=== PATIENT | female | born 1970 | race Hispanic/Latino ===

== ENCOUNTER 2019-09-29 08:20 | Inpatient (IN) | payer MEDICAID, OTHER, SELFPAY ==
[~2019-09-29] VITALS: Ht 170.2 cm; Wt 83.9 kg
[2019-09-29 08:39] LABS: BASOPHILS % (AUTO) 0.1 % (0.0-5.0); EOSINOPHILS % (AUTO) 0.2 % (0.0-8.0); HEMATOCRIT 40.7 % (36-48); LYMPHOCYTES % (AUTO) 12.9 % (21.0-51.0); MEAN CORPUSCULAR HEMOGLOBIN 29.9 pg (27.0-33.0); MEAN CORPUSCULAR HGB CONC 33.2 g/dL (32.0-36.0); MONOCYTES % (AUTO) 1.6 % (3.0-13.0); NEUTROPHILS % (AUTO) 84.4 % (40.0-77.0); PLATELET COUNT (AUTO) 315 K/uL (130-400); RED BLOOD CELL COUNT(AUTO) 4.52 MIL/uL (4.00-5.50); WHITE BLOOD COUNT (AUTO) 11.4 K/uL (4.8-10.8)
[2019-09-29] MEDS ORDERED: DEXAMETHASONE SOD PHOSPHATE 10MG/ML 1ML VIAL ONE (08:52)
[2019-09-29 08:55] LABS: ALBUMIN 2.6 g/dL (3.5-5.0); CREATININE 0.8 mg/dL (0.5-1.5); POTASSIUM 3.4 mmol/L (3.5-5.1)
[2019-09-29 09:04] LABS: ABG BASE EXCESS 2.6 mmol/L (-2.0-3.0); ABG HCO3 26.1 mmol/L (21.0-28.0); ABG OXYGEN SATURATION 91.4 % (95.0-99.0); ABG PCO2 37 mmHg (32-45)
[2019-09-29] MEDS ORDERED: GUAIFENESIN SUGAR-FREE 100 MG/5 ML UDCUP ONE (09:04)
[2019-09-29 09:12] LABS: BILIRUBIN,TOTAL 0.4 mg/dL (0.2-1.0); TOTAL PROTEIN, SERUM 8.3 g/dL (6.0-8.3)
[2019-09-29] MEDS ORDERED: ALBUTEROL INHALER 90MCG/INH IH ONE (09:17)
[2019-09-29 09:30] LABS: INR 0.87 (0.85-1.15); PARTIAL THROMBOPLASTIN TIME 34.2 SEC (26.3-35.5); PROTHROMBIN TIME 9.4 SEC (9.6-11.6)
[2019-09-29] MEDS ORDERED: DIPHENHYDRAMINE HCL 25 MG CAPSULE PO PRN (09:30)
[2019-09-29] MEDS ORDERED: ACETAMINOPHEN-CODEINE 300/30MG TAB PO PRN (09:30)
[2019-09-29] MEDS ORDERED: ONDANSETRON HCL 4 MG/2 ML VIAL IV PRN (09:30)
[2019-09-29] MEDS: FUROSEMIDE 10 MG/ML 4ML VIAL IVP SCH ×2 (10:00→20:30)
[2019-09-29] MEDS ORDERED: ENOXAPARIN SODIUM 40 MG/0.4 ML SYRINGE SQ SCH (10:00)
[2019-09-29] MEDS: CEFTRIAXONE SODIUM 1 GM IV SCH (10:00)
[2019-09-29] MEDS: AZITHROMYCIN 500MG+NS 250ML 250 ML IV SCH (10:00)
[2019-09-29] MEDS ORDERED: ENOXAPARIN SODIUM 40 MG/0.4 ML SYRINGE SQ ONE (10:42)
[2019-09-29] MEDS ORDERED: AZITHROMYCIN 500MG+NS 250ML 250 ML IV ONE ×2 (10:42→10:52)
[2019-09-29] MEDS ORDERED: CEFTRIAXONE SODIUM 1 GM ONE (10:42)
[2019-09-29] MEDS ORDERED: FUROSEMIDE 10 MG/ML 4ML VIAL ONE (10:42)
[2019-09-29] MEDS ORDERED: FAMOTIDINE/PF 20 MG/2 ML VIAL IV ONE (10:43)
[2019-09-29 11:50] LABS: APPEARANCE,URINE Clear (CLEAR); BILIRUBIN,URINE Negative (NEGATIVE); COLOR,URINE Yellow (YELLOW); GLUCOSE, URINE (UA) Negative (NEGATIVE); KETONES,URINE Negative (NEGATIVE); LEUKOCYTE ESTERASE ,URINE Negative (NEGATIVE); NITRATE,URINE Negative (NEGATIVE); OCCULT BLOOD,URINE Negative (NEGATIVE); PROTEIN,URINE Trace mg/dL (NEGATIVE)
[2019-09-29 11:58] LABS: RBC,URINE 0-1 /HPF (0-1)
[2019-09-29 11:59] LABS: BACTERIA,URINE Few /HPF (None Seen); MUCUS,URINE Rare LPF (None Seen); SQUAMOUS EPITHELIAL CELL,UR Rare /HPF (0-2)
[2019-09-29] MEDS ORDERED: GLUCAGON 1MG KIT 1 MG ML IM PRN (14:15)
[2019-09-29] MEDS ORDERED: DEXTROSE 50%-WATER 50 ML DISP.SYRIN IV PRN (14:15)
[2019-09-29] MEDS: BENZONATATE 100 MG CAPSULE PO PRN ×2 (15:50→20:32)
[2019-09-29] MEDS: INSULIN HUMULIN R 100 UNIT/ML 3ML SQ SCH ×2 (15:51→20:29)
[2019-09-29 16:00] VITALS: BP 125/74
[2019-09-29] MEDS ORDERED: PHARMACY COMMUNICATION MISC SCH ×2 (16:30→18:30)
[2019-09-29] MEDS: ENOXAPARIN SODIUM 40 MG/0.4 ML SYRINGE SQ SCH (20:27)
[2019-09-29 20:28] VITALS: BP 126/69
[2019-09-29] MEDS: FAMOTIDINE/PF 20 MG/2 ML VIAL IV SCH (20:31)
[2019-09-29 23:46] VITALS: BP 133/83
[2019-09-30] MEDS ORDERED: POTASSIUM CHLORIDE 10% ELIXIR 20 MEQ/15 ML UDCUP PO PRN
[2019-09-30] MEDS ORDERED: POTASSIUM CHLORIDE 20MEQ/100ML 100 ML IV PRN
[2019-09-30 04:00] VITALS: BP 117/72
[2019-09-30] MEDS: BENZONATATE 100 MG CAPSULE PO PRN ×2 (04:15→14:34)
[2019-09-30] MEDS: ACETAMINOPHEN 325 MG TAB PO PRN (04:19)
[2019-09-30 05:45] LABS: BASOPHILS % (AUTO) 0.1 % (0.0-5.0); HEMATOCRIT 36.2 % (36-48); LYMPHOCYTES % (AUTO) 9.6 % (21.0-51.0); MEAN CORPUSCULAR HEMOGLOBIN 29.9 pg (27.0-33.0); MEAN CORPUSCULAR HGB CONC 33.1 g/dL (32.0-36.0); MEAN CORPUSCULAR VOLUME 90.3 fL (79-99); MONOCYTES % (AUTO) 1.9 % (3.0-13.0); NEUTROPHILS % (AUTO) 87.9 % (40.0-77.0); PLATELET COUNT (AUTO) 344 K/uL (130-400); RED BLOOD CELL COUNT(AUTO) 4.01 MIL/uL (4.00-5.50); WHITE BLOOD COUNT (AUTO) 9.7 K/uL (4.8-10.8)
[2019-09-30 06:07] LABS: ALBUMIN 2.5 g/dL (3.5-5.0); BILIRUBIN,TOTAL 0.4 mg/dL (0.2-1.0); CREATININE 0.9 mg/dL (0.5-1.5); POTASSIUM 3.6 mmol/L (3.5-5.1); TOTAL PROTEIN, SERUM 8.1 g/dL (6.0-8.3)
[2019-09-30] MEDS: INSULIN HUMULIN R 100 UNIT/ML 3ML SQ SCH ×4 (06:54→20:42)
[2019-09-30] MEDS: FAMOTIDINE/PF 20 MG/2 ML VIAL IV SCH ×2 (08:19→20:39)
[2019-09-30] MEDS: DEXAMETHASONE 4 MG TAB PO SCH (08:20)
[2019-09-30] MEDS: FUROSEMIDE 10 MG/ML 4ML VIAL IVP SCH ×2 (08:20→20:40)
[2019-09-30] MEDS: ENOXAPARIN SODIUM 40 MG/0.4 ML SYRINGE SQ SCH ×2 (08:22→20:39)
[2019-09-30 08:54] VITALS: BP 113/76
[2019-09-30] MEDS: CEFTRIAXONE SODIUM 1 GM IV SCH (09:37)
[2019-09-30] MEDS: AZITHROMYCIN 500MG+NS 250ML 250 ML IV SCH (09:38)
--- NOTE | 2019-09-30 10:23 | NUR ---
CHART CHECK COMPLETED. Pt IS A 48 Y.O. FEMALE ADMITTED SECONDARY TO COVID 19. PAST MEDICAL HISTORY NOT REPORTED AT THIS TIME. Pt CURRENTLY ON REGULAR TEXTURE, THIN LIQUID DIET (CONSISTENT CARB). Pt ON 4L O2 VIA NC. SKILLED SPEECH THERAPY IS NOT WARRANTED AT THIS TIME. Addendum: 09/30/19 at 1026 by BREANNA YU, [address] Amended: Links added.
[2019-09-30 12:01] VITALS: BP 108/64
[2019-09-30] MEDS ORDERED: PHARMACY COMMUNICATION MISC SCH (13:30)
[2019-09-30] MEDS ORDERED: REMDESIVIR (EUA) 520 200 MG in SODIUM CHLORIDE 0.9% 250 ML IV ONE (13:45)
[2019-09-30] MEDS ORDERED: COMPOUND IV REFRIGERATED 1 EACH IVSOLN MISC PRN (14:00)
[2019-09-30] MEDS: POTASSIUM CHLORIDE 20 MEQ ERTAB PO PRN ×2 (14:12→16:57)
[2019-09-30 16:48] VITALS: BP 121/74
--- NOTE | 2019-09-30 17:35 | NUR ---
DCP CM unable to meet with pt, called spouse on facesheet, spoke to Christo Dale , discussed dc plans. Pt is independent prior to admission, lives at home with spouse, daughter, and 2 sons. Denies any equipments/services, uses [facility] for meds. Feels safe to go back home, mariella summers, spouse able to assist with transportation and needs as necessary. DC plan to home once stable. CM to cont to follow up. 2nd emergency contact: Elena Bueno- daughter [phone] Addendum: 09/30/19 at 1737 by SIRIA RIVERA LVN Amended: Links added.
[2019-09-30 20:17] VITALS: BP 121/69
[2019-09-30] MEDS: GUAIFENESIN-CODEINE 5 ML SYRUP PO PRN (20:38)
[2019-09-30 23:56] VITALS: BP 122/78
--- NOTE | 2019-10-01 02:07 | NUR ---
First and second units of FFP transfusion competed, ran on pump @125ml/hr. Tolerated well with no adverse transfusion reaction observed. V/S stable. Patient is now resting comfortably in bed. Following POC. Will continue to monitor.
[2019-10-01 03:28] VITALS: BP 115/82
[2019-10-01 03:43] LABS: ABG BASE EXCESS 3.7 mmol/L (-2.0-3.0); ABG HCO3 28.2 mmol/L (21.0-28.0); ABG OXYGEN SATURATION 95.4 % (95.0-99.0); ABG PCO2 42 mmHg (32-45)
[2019-10-01] MEDS: GUAIFENESIN-CODEINE 5 ML SYRUP PO PRN ×3 (03:50→17:13)
[2019-10-01] MEDS: PHARMACY COMMUNICATION MISC SCH (06:00)
[2019-10-01 06:33] LABS: HEMATOCRIT 34.3 % (36-48); MEAN CORPUSCULAR HEMOGLOBIN 29.6 pg (27.0-33.0); MEAN CORPUSCULAR HGB CONC 32.9 g/dL (32.0-36.0); MEAN CORPUSCULAR VOLUME 89.8 fL (79-99); RED BLOOD CELL COUNT(AUTO) 3.82 MIL/uL (4.00-5.50); RED CELL DISTRIBUTION WIDTH 13.8 % (11.0-15.5); WHITE BLOOD COUNT (AUTO) 6.9 K/uL (4.8-10.8)
[2019-10-01 06:53] LABS: ALBUMIN 2.5 g/dL (3.5-5.0); BILIRUBIN,DIRECT 0.1 mg/dL (0.0-0.3); BILIRUBIN,TOTAL 0.4 mg/dL (0.2-1.0); CREATININE 0.7 mg/dL (0.5-1.5); MAGNESIUM 2.1 mg/dL (1.80-2.40); PHOSPHORUS 3.4 mg/dL (2.5-4.9); POTASSIUM 3.9 mmol/L (3.5-5.1); TOTAL PROTEIN, SERUM 7.8 g/dL (6.0-8.3)
[2019-10-01] MEDS: INSULIN HUMULIN R 100 UNIT/ML 3ML SQ SCH ×4 (07:24→20:58)
[2019-10-01 07:25] VITALS: BP 116/81
[2019-10-01] MEDS: FAMOTIDINE/PF 20 MG/2 ML VIAL IV SCH ×2 (10:29→20:56)
[2019-10-01] MEDS: DEXAMETHASONE 4 MG TAB PO SCH (10:29)
[2019-10-01] MEDS: FUROSEMIDE 10 MG/ML 4ML VIAL IVP SCH ×2 (10:29→20:57)
[2019-10-01] MEDS: AZITHROMYCIN 500MG+NS 250ML 250 ML IV SCH (10:30)
[2019-10-01] MEDS: CEFTRIAXONE SODIUM 1 GM IV SCH (10:30)
[2019-10-01] MEDS: ENOXAPARIN SODIUM 40 MG/0.4 ML SYRINGE SQ SCH ×2 (10:30→21:01)
[2019-10-01 10:56] VITALS: BP 114/73
[2019-10-01] MEDS ORDERED: REMDESIVIR (EUA) 520 100 MG in SODIUM CHLORIDE 0.9% 250 ML IV SCH (14:00)
[2019-10-01] MEDS: REMDESIVIR (EUA) 520 100 MG in SODIUM CHLORIDE 0.9% 250 ML IV SCH (15:46)
[2019-10-01 15:58] VITALS: BP 123/79
[2019-10-01 19:57] VITALS: BP 117/70
[2019-10-02 01:16] VITALS: BP 126/76
[2019-10-02 04:03] VITALS: BP 115/77
[2019-10-02 04:12] LABS: ABG BASE EXCESS 3.9 mmol/L (-2.0-3.0); ABG HCO3 26.8 mmol/L (21.0-28.0); ABG OXYGEN SATURATION 96.9 % (95.0-99.0); ABG PCO2 35 mmHg (32-45)
[2019-10-02 05:17] LABS: BASOPHILS % (AUTO) 0.2 % (0.0-5.0); EOSINOPHILS % (AUTO) 0.2 % (0.0-8.0); HEMATOCRIT 37.7 % (36-48); LYMPHOCYTES % (AUTO) 27.7 % (21.0-51.0); MEAN CORPUSCULAR HEMOGLOBIN 29.2 pg (27.0-33.0); MEAN CORPUSCULAR HGB CONC 32.6 g/dL (32.0-36.0); MEAN CORPUSCULAR VOLUME 89.5 fL (79-99); MONOCYTES % (AUTO) 5.3 % (3.0-13.0); NEUTROPHILS % (AUTO) 64.8 % (40.0-77.0); PLATELET COUNT (AUTO) 430 K/uL (130-400); RED BLOOD CELL COUNT(AUTO) 4.21 MIL/uL (4.00-5.50); RED CELL DISTRIBUTION WIDTH 13.7 % (11.0-15.5); WHITE BLOOD COUNT (AUTO) 6.3 K/uL (4.8-10.8)
[2019-10-02 06:18] LABS: ALBUMIN 2.7 g/dL (3.5-5.0); BILIRUBIN,DIRECT 0.1 mg/dL (0.0-0.3); BILIRUBIN,TOTAL 0.3 mg/dL (0.2-1.0); CREATININE 0.8 mg/dL (0.5-1.5); POTASSIUM 3.7 mmol/L (3.5-5.1); TOTAL PROTEIN, SERUM 8.6 g/dL (6.0-8.3)
[2019-10-02] MEDS: GUAIFENESIN-CODEINE 5 ML SYRUP PO PRN ×3 (06:25→23:37)
[2019-10-02] MEDS: INSULIN HUMULIN R 100 UNIT/ML 3ML SQ SCH ×4 (06:30→23:39)
[2019-10-02 07:27] VITALS: BP 105/69
[2019-10-02] MEDS: PHARMACY COMMUNICATION MISC SCH (08:00)
[2019-10-02] MEDS: FUROSEMIDE 10 MG/ML 4ML VIAL IVP SCH ×2 (09:36→20:39)
[2019-10-02] MEDS: DEXAMETHASONE 4 MG TAB PO SCH (09:37)
[2019-10-02] MEDS: AZITHROMYCIN 500MG+NS 250ML 250 ML IV SCH (09:38)
[2019-10-02] MEDS: ENOXAPARIN SODIUM 40 MG/0.4 ML SYRINGE SQ SCH ×2 (09:38→20:45)
[2019-10-02] MEDS: CEFTRIAXONE SODIUM 1 GM IV SCH (09:38)
[2019-10-02] MEDS: FAMOTIDINE/PF 20 MG/2 ML VIAL IV SCH ×2 (09:39→20:38)
[2019-10-02 10:48] VITALS: BP 99/64
[2019-10-02] MEDS: REMDESIVIR (EUA) 520 100 MG in SODIUM CHLORIDE 0.9% 250 ML IV SCH (14:03)
[2019-10-02 15:40] VITALS: BP 107/73
[2019-10-02] MEDS: ACETAMINOPHEN 325 MG TAB PO PRN (16:26)
[2019-10-02 20:23] VITALS: BP 110/72
[2019-10-03] VITALS (7 sets, daily range): BP systolic 98–119; BP diastolic 62–81
[2019-10-03] MEDS: PHARMACY COMMUNICATION MISC SCH (06:00)
[2019-10-03] MEDS: INSULIN HUMULIN R 100 UNIT/ML 3ML SQ SCH ×4 (07:30→20:25)
[2019-10-03 07:36] LABS: ALBUMIN 2.7 g/dL (3.5-5.0); BILIRUBIN,DIRECT 0.1 mg/dL (0.0-0.3); BILIRUBIN,TOTAL 0.3 mg/dL (0.2-1.0); CREATININE 0.9 mg/dL (0.5-1.5); TOTAL PROTEIN, SERUM 8.2 g/dL (6.0-8.3)
--- NOTE | 2019-10-03 08:30 | NUR ---
NOTE AAOX3. SHE CAME IN WITH SOB SHE IS POSITIVE FOR COVID. RECEIVED CONVALESCENT PLASMA AND STARTED REMDESIVIR WHICH SHE IS STILL RECEIVING. BBS CLEAR BUT SLIGHTLY DIMINISHED. COUGHS AT TIMES. SHE REPORTS AND IS NOTICEABLE THAT SHE IS VERY NERVOUS. TRIES TO AVOID COUGHING AT ALL COST. HAS BEEN REFUSING TESSALON PEARLES. REQUESTING ALTERNATE COUGH MED. WILL MEDICATE SOON. INSTRUCTED HER SHE NEEDS TO BE GETTING OUT OF BED. SITTING UP STRAIGHT, DEEP BREATHS AND TRY TO PRONE OR AT LEAST BE CHANGING POSITION WHILE IN BED. SHE VERBALIZES UNDERSTANDING BUT IS ASKING IF ANXIETY MEDS COULD BE ADDED. WILL ASK MD WHEN THEY ROUNDS.
[2019-10-03] MEDS: CEFTRIAXONE SODIUM 1 GM IV SCH (09:27)
[2019-10-03] MEDS: DEXAMETHASONE 4 MG TAB PO SCH (09:27)
[2019-10-03] MEDS: FUROSEMIDE 10 MG/ML 4ML VIAL IVP SCH ×2 (09:27→20:23)
[2019-10-03] MEDS: AZITHROMYCIN 500MG+NS 250ML 250 ML IV SCH (09:27)
[2019-10-03] MEDS: FAMOTIDINE/PF 20 MG/2 ML VIAL IV SCH ×2 (09:27→20:22)
[2019-10-03] MEDS: ENOXAPARIN SODIUM 40 MG/0.4 ML SYRINGE SQ SCH ×2 (09:27→20:26)
[2019-10-03] MEDS: GUAIFENESIN-CODEINE 5 ML SYRUP PO PRN (09:29)
[2019-10-03] MEDS ORDERED: DIAZEPAM 2 MG TAB PO PRN (12:30)
[2019-10-03] MEDS: REMDESIVIR (EUA) 520 100 MG in SODIUM CHLORIDE 0.9% 250 ML IV SCH (12:54)
[2019-10-03] MEDS: BENZONATATE 100 MG CAPSULE PO PRN (12:56)
[2019-10-03] MEDS ORDERED: DIAZEPAM 5 MG TABLET PO PRN (17:00)
--- NOTE | 2019-10-03 18:20 | NUR ---
NOTE HAS REMAINED STABLE THROUGHOUT THE DAY. SHE STARTED DOING WHAT SHE WAS INSTRUCTED TO DO AND WAS ALSO APPROACHED BY NURSE PRACTICIONER WILMER TO DO THE SAME AND SHE GOT OUT OF BED ON HER OWN SLOWLY. HAS BEEN TRYING TO CONTROL HER BREATHING AND TAKES DEEP BREATHS. SHE IS ASKING HER SON TO BRING HER COGH DROPS SHE SAYS SHE DID BETTER WITH THAT EARLIER FAR PREVENTING COUGH. TOLD HER HAT ANXIETY MEDS ARE AVAILABLE IF NEEDED. VERBALIZED UNDERSTANDING.
[2019-10-04 03:38] VITALS: BP 115/75
[2019-10-04 03:45] LABS: ABG BASE EXCESS 4.8 mmol/L (-2.0-3.0); ABG OXYGEN SATURATION 94.8 % (95.0-99.0); ABG PCO2 37 mmHg (32-45)
[2019-10-04 04:45] LABS: BASOPHILS % (AUTO) 0.2 % (0.0-5.0); EOSINOPHILS % (AUTO) 0.3 % (0.0-8.0); HEMATOCRIT 39.6 % (36-48); LYMPHOCYTES % (AUTO) 35.6 % (21.0-51.0); MEAN CORPUSCULAR HEMOGLOBIN 29.3 pg (27.0-33.0); MEAN CORPUSCULAR HGB CONC 33.1 g/dL (32.0-36.0); MEAN CORPUSCULAR VOLUME 88.6 fL (79-99); MONOCYTES % (AUTO) 6.9 % (3.0-13.0); NEUTROPHILS % (AUTO) 53.5 % (40.0-77.0); PLATELET COUNT (AUTO) 531 K/uL (130-400); RED BLOOD CELL COUNT(AUTO) 4.47 MIL/uL (4.00-5.50); RED CELL DISTRIBUTION WIDTH 13.4 % (11.0-15.5); WHITE BLOOD COUNT (AUTO) 6.5 K/uL (4.8-10.8)
[2019-10-04 05:18] LABS: ALBUMIN 2.8 g/dL (3.5-5.0); BILIRUBIN,DIRECT 0.1 mg/dL (0.0-0.3); BILIRUBIN,TOTAL 0.3 mg/dL (0.2-1.0); CREATININE 0.8 mg/dL (0.5-1.5); MAGNESIUM 2.2 mg/dL (1.80-2.40); PHOSPHORUS 3.9 mg/dL (2.5-4.9); POTASSIUM 3.4 mmol/L (3.5-5.1); TOTAL PROTEIN, SERUM 8.4 g/dL (6.0-8.3)
[2019-10-04] MEDS: PHARMACY COMMUNICATION MISC SCH (06:00)
[2019-10-04] MEDS: INSULIN HUMULIN R 100 UNIT/ML 3ML SQ SCH ×4 (06:24→20:58)
[2019-10-04 08:00] VITALS: BP 108/67
[2019-10-04] MEDS: AZITHROMYCIN 500MG+NS 250ML 250 ML IV SCH (08:58)
[2019-10-04] MEDS: FUROSEMIDE 10 MG/ML 4ML VIAL IVP SCH ×2 (08:59→20:55)
[2019-10-04] MEDS: CEFTRIAXONE SODIUM 1 GM IV SCH (08:59)
[2019-10-04] MEDS: FAMOTIDINE/PF 20 MG/2 ML VIAL IV SCH ×2 (08:59→20:56)
[2019-10-04] MEDS: DEXAMETHASONE 4 MG TAB PO SCH (09:00)
[2019-10-04] MEDS: ENOXAPARIN SODIUM 40 MG/0.4 ML SYRINGE SQ SCH ×2 (09:00→20:57)
[2019-10-04 11:00] VITALS: BP 111/73
[2019-10-04] MEDS: REMDESIVIR (EUA) 520 100 MG in SODIUM CHLORIDE 0.9% 250 ML IV SCH (13:37)
[2019-10-04 16:00] VITALS: BP 107/67
[2019-10-04] MEDS: ACETAMINOPHEN 325 MG TAB PO PRN (19:23)
[2019-10-04 19:55] VITALS: BP 123/87
[2019-10-04] MEDS: POTASSIUM CHLORIDE 20 MEQ ERTAB PO PRN (20:56)
[2019-10-04 23:23] VITALS: BP 115/74
[2019-10-05] MEDS: POTASSIUM CHLORIDE 20 MEQ ERTAB PO PRN ×2 (00:37→03:17)
[2019-10-05 03:28] VITALS: BP 119/77
[2019-10-05] MEDS: GUAIFENESIN-CODEINE 5 ML SYRUP PO PRN (03:47)
[2019-10-05] MEDS: BENZONATATE 100 MG CAPSULE PO PRN (03:51)
[2019-10-05] MEDS: PHARMACY COMMUNICATION MISC SCH (05:22)
[2019-10-05 05:35] LABS: BASOPHILS % (AUTO) 0.3 % (0.0-5.0); EOSINOPHILS % (AUTO) 0.6 % (0.0-8.0); HEMATOCRIT 38.5 % (36-48); LYMPHOCYTES % (AUTO) 30.4 % (21.0-51.0); MEAN CORPUSCULAR HEMOGLOBIN 29.8 pg (27.0-33.0); MEAN CORPUSCULAR HGB CONC 33.5 g/dL (32.0-36.0); MEAN CORPUSCULAR VOLUME 88.9 fL (79-99); MONOCYTES % (AUTO) 5.8 % (3.0-13.0); NEUTROPHILS % (AUTO) 59.5 % (40.0-77.0); PLATELET COUNT (AUTO) 544 K/uL (130-400); RED BLOOD CELL COUNT(AUTO) 4.33 MIL/uL (4.00-5.50); RED CELL DISTRIBUTION WIDTH 13.2 % (11.0-15.5); WHITE BLOOD COUNT (AUTO) 6.8 K/uL (4.8-10.8)
[2019-10-05] MEDS: INSULIN HUMULIN R 100 UNIT/ML 3ML SQ SCH ×3 (05:51→16:58)
[2019-10-05 06:15] LABS: ALANINE AMINOTRANSFERASE 42 U/L (12-78); ALBUMIN 2.8 g/dL (3.5-5.0); ASPARTATE AMINOTRANSFERASE 16 U/L (10-37); BILIRUBIN,TOTAL 0.4 mg/dL (0.2-1.0); CARBON DIOXIDE 31 mmol/L (21-32); CHLORIDE 100 mmol/L (101-111); CREATININE 0.8 mg/dL (0.5-1.5); GLOMERULAR FILTR. RATE CALC 82 mL/min (>60); GLUCOSE,RANDOM 119 mg/dL (70-105); PHOSPHORUS 3.5 mg/dL (2.5-4.9); POTASSIUM 3.7 mmol/L (3.5-5.1); SODIUM SERUM 137 mmol/L (136-145); TOTAL PROTEIN, SERUM 8.1 g/dL (6.0-8.3); UREA NITROGEN, BLOOD 26 mg/dL (7-18)
[2019-10-05 08:00] VITALS: BP 108/75
[2019-10-05] MEDS: ENOXAPARIN SODIUM 40 MG/0.4 ML SYRINGE SQ SCH (08:49)
[2019-10-05] MEDS: FAMOTIDINE/PF 20 MG/2 ML VIAL IV SCH (08:49)
[2019-10-05] MEDS: DEXAMETHASONE 4 MG TAB PO SCH (08:49)
[2019-10-05 11:00] VITALS: BP 109/69
[2019-10-05] MEDS ORDERED: APIX2.5T PO (14:21)
[2019-10-05] MEDS ORDERED: DEXA6TAB PO (14:21)
[2019-10-05 16:00] VITALS: BP 122/77
[2019-10-05] MEDS ORDERED: BENZ-51 PO (16:02)
--- NOTE | 2019-10-05 18:15 | NUR ---
NOTE PATIENT HAS BEEN DOING BETTER SINCE SUNDAY AND WERE ABLE TO WEINNE OFF O2 GRADUALLY AND COACHED HER THROUGH SINCE SHE HAD A LOT OF ANXIETY AND WAS EVEN AFRAID TO COUGH. SHE WAS EVALUATED FOR HOME O2 EARLIER PART OF ORDERS FOR DISCHARGE TODAY AND SHE DID WELL. SATS NEVER DROPPED BELOW 93% WITH AMBULATION. I PROCEEDED TO DISCHARGE HOME ON ROOM AIR. SHE WAS VERY EXCITED ABOUT IT AND DID NOT APPEAR ANXIOUS ABOUT LEAVING WITHOUT O2. INSTRUCTED ON HOME MEDS FOLLOW UPS AND CONTINUE TO ISOLATE FOR 14 DAYS MORE AND PREVENT SPREAD OF COVID. WAS ALSO PROVIDED WITH CDC LITERATURE ABOUT IT. REFER TO DC SUMMARY FOR DETAILS.
== END 2019-10-05 18:40 | disposition home or self-care (01) | DRG 177 ==
LOC: EDH 08:20 → EDHIP 08:21 → 3BH 15:38
PROVIDERS: ADMIT Internal Medicine Pulmonary Disease; ATTEND Internal Medicine Pulmonary Disease
PROC: XW033E5 Introduction of Remdesivir Anti-infective into Peripheral Vein, Percutaneous Approach, New Technology Group 5 (ICD-10-PCS; principal; 2019-09-29)
PROC: XW13325 Transfusion of Convalescent Plasma (Nonautologous) into Peripheral Vein, Percutaneous Approach, New Technology Group 5 (ICD-10-PCS; 2019-09-29)
DX: U07.1 COVID-19 (principal); E43 Unspecified severe protein-calorie malnutrition; J12.89 Other viral pneumonia; J96.01 Acute respiratory failure with hypoxia; E66.9 Obesity, unspecified; F41.9 Anxiety disorder, unspecified; Z68.29 Body mass index [BMI] 29.0-29.9, adult; Z88.6 Allergy status to analgesic agent; Z88.8 Allergy status to other drugs, medicaments and biological substances
CPT/HCPCS: 36415; 36430; 36600; 71045; 80048; 80053; 80076; 81001; 82565; 82803; 82948; 83605; 83735; 84100; 84145; 84484; 85025; 85027; 85378; 85610; 85730; 86900; 86901; 86927; 87426; 87804; 93005; 94760; 99291; G0378; J0456; J0696; J1100; J1650; J1815; J1940; J3490; J7050; J8540

== ENCOUNTER 2021-04-16 21:43 | Emergency (ER) | payer OTHER ==
[~2021-04-16] VITALS: Ht 165.1 cm; Wt 93.4 kg
[~2021-04-16 21:43] MED LIST: APIX2.5T PO; BENZ-70 PO; DEXA6TAB PO
[2021-04-16] MEDS ORDERED: CETI1SOL17 PO (22:12)
[2021-04-16] MEDS ORDERED: FAMO-136 PO (22:12)
[2021-04-16 22:15] VITALS: BP 148/86
[2021-04-16] MEDS ORDERED: DIPHENHYDRAMINE HCL 25 MG CAPSULE PO ONE (22:30)
[2021-04-16] MEDS ORDERED: FAMOTIDINE 20MG TAB PO ONE (22:30)
== END 2021-04-16 22:28 | disposition home or self-care (01) ==
LOC: EDH 21:43
DX: L50.9 Urticaria, unspecified (principal); E11.9 Type 2 diabetes mellitus without complications; E66.9 Obesity, unspecified; I10 Essential (primary) hypertension; E78.00 Pure hypercholesterolemia, unspecified; M19.90 Unspecified osteoarthritis, unspecified site; Z90.49 Acquired absence of other specified parts of digestive tract; Z98.51 Tubal ligation status; Z88.6 Allergy status to analgesic agent; Z79.899 Other long term (current) drug therapy
CPT/HCPCS: 82948; 99283; Q0163

== ENCOUNTER 2021-06-29 07:53 | Emergency (ER) | payer OTHER ==
[~2021-06-29] VITALS: Ht 165.1 cm; Wt 88.5 kg
[~2021-06-29 07:53] MED LIST changes: +CETI1SOL17 PO; +FAMO-136 PO
[2021-06-29 07:59] VITALS: BP 148/86
[2021-06-29] MEDS ORDERED: MORPHINE 2 MG SYG IVP SCH (08:30)
[2021-06-29] MEDS ORDERED: ORPHENADRINE CITRATE 30 MG/ML ML IVP SCH (08:30)
[2021-06-29 08:59] LABS: BASOPHILS % (AUTO) 1.1 % (0.0-5.0); EOSINOPHILS % (AUTO) 4.8 % (0.0-8.0); HEMATOCRIT 41.6 % (36-48); LYMPHOCYTES % (AUTO) 41.9 % (21.0-51.0); MEAN CORPUSCULAR HEMOGLOBIN 29.1 pg (27.0-33.0); MEAN CORPUSCULAR HGB CONC 33.2 g/dL (32.0-36.0); MEAN CORPUSCULAR VOLUME 87.6 fL (79-99); MONOCYTES % (AUTO) 6.8 % (3.0-13.0); NEUTROPHILS % (AUTO) 44.9 % (40.0-77.0); PLATELET COUNT (AUTO) 286 K/uL (130-400); RED BLOOD CELL COUNT(AUTO) 4.75 MIL/uL (4.00-5.50); WHITE BLOOD COUNT (AUTO) 6.7 K/uL (4.8-10.8)
[2021-06-29 09:10] LABS: CREATININE 0.7 mg/dL (0.5-1.5); POTASSIUM 3.9 mmol/L (3.5-5.1)
[2021-06-29] MEDS ORDERED: ACET-2079 PO (09:40)
[2021-06-29] MEDS ORDERED: TIZA4CAP8 PO (09:40)
== END 2021-06-29 09:56 | disposition home or self-care (01) ==
LOC: EDH 07:53
DX: M62.830 Muscle spasm of back (principal); M54.2 Cervicalgia; M19.90 Unspecified osteoarthritis, unspecified site; E11.9 Type 2 diabetes mellitus without complications; E78.00 Pure hypercholesterolemia, unspecified; I10 Essential (primary) hypertension; Z90.49 Acquired absence of other specified parts of digestive tract; Z88.6 Allergy status to analgesic agent; Z79.899 Other long term (current) drug therapy; Z98.890 Other specified postprocedural states
CPT/HCPCS: 36415; 71045; 72040; 80048; 84484; 85025; 93005; 96374; 96375; 99285; J2360

== ENCOUNTER → 2021-08-04 | Outpatient (CLI) | payer OTHER ==
[~2021-08-04] MED LIST changes: +ACET-2079 PO; +DEXA6TAB7 PO; +TIZA4CAP8 PO
== END | disposition home or self-care (01) ==
LOC: RAH 10:05
PROVIDERS: ATTEND Family Medicine
DX: Z02.71 Encounter for disability determination (principal)
CPT/HCPCS: 73560

== ENCOUNTER 2021-08-06 20:13 | Emergency (ER) | payer OTHER ==
[~2021-08-06] VITALS: Ht 165.1 cm; Wt 89.8 kg
[~2021-08-06 20:13] MED LIST changes: -DEXA6TAB7 PO
[2021-08-06 20:32] VITALS: BP 159/99
[2021-08-06] MEDS ORDERED: HYDROCODONE/ACETAMINOPHEN 5/325 MG TAB PO ONE (21:00)
[2021-08-06] MEDS ORDERED: DEXA6TAB7 PO (21:46)
[2021-08-06] MEDS ORDERED: DEXAMETHASONE 4 MG TAB PO SCH (22:00)
== END 2021-08-06 21:55 | disposition home or self-care (01) ==
LOC: EDH 20:13
DX: M70.51 Other bursitis of knee, right knee (principal); I10 Essential (primary) hypertension; E11.9 Type 2 diabetes mellitus without complications; E78.00 Pure hypercholesterolemia, unspecified; Z90.49 Acquired absence of other specified parts of digestive tract; Z98.890 Other specified postprocedural states; Z79.899 Other long term (current) drug therapy; Z79.01 Long term (current) use of anticoagulants; Z88.6 Allergy status to analgesic agent; Z88.8 Allergy status to other drugs, medicaments and biological substances; Y93.9 Activity, unspecified
CPT/HCPCS: 73560

== ENCOUNTER 2022-04-06 21:34 | Emergency (ER) | payer OTHER ==
[~2022-04-06] VITALS: Ht 165.1 cm; Wt 88.5 kg
[~2022-04-06 21:34] MED LIST changes: +BENZ-226 PO; -BENZ-70 PO; +DEXA6TAB7 PO
[2022-04-06 23:19] VITALS: BP 155/86
== END 2022-04-06 23:50 | disposition home or self-care (01) ==
LOC: EDH 21:34
DX: S90.31XA Contusion of right foot, initial encounter (principal); E11.9 Type 2 diabetes mellitus without complications; E78.00 Pure hypercholesterolemia, unspecified; I10 Essential (primary) hypertension; Z90.49 Acquired absence of other specified parts of digestive tract; Z79.899 Other long term (current) drug therapy; Z88.6 Allergy status to analgesic agent; W20.8XXA Other cause of strike by thrown, projected or falling object, initial encounter; Y93.89 Activity, other specified; Y92.89 Other specified places as the place of occurrence of the external cause; Y99.8 Other external cause status
CPT/HCPCS: 73600; 73620

== ENCOUNTER 2022-05-05 21:04 | Emergency (ER) | payer OTHER ==
[~2022-05-05] VITALS: Ht 165.1 cm; Wt 88.0 kg
[2022-05-05 21:39] LABS: APPEARANCE,URINE CLOUDY (CLEAR); BILIRUBIN,URINE NEGATIVE (NEGATIVE); COLOR,URINE YELLOW (YELLOW); GLUCOSE, URINE (UA) NEGATIVE (NEGATIVE); KETONES,URINE 5 mg/dL (NEGATIVE); LEUKOCYTE ESTERASE ,URINE 25 Leu/uL (NEGATIVE); NITRATE,URINE NEGATIVE (NEGATIVE); OCCULT BLOOD,URINE NEGATIVE (NEGATIVE); PH,URINE 5.5 (5.0-8.0); PROTEIN,URINE 20 mg/dL (NEGATIVE)
[2022-05-05 21:43] LABS: MUCUS,URINE FEW LPF (None Seen); RBC,URINE 0-1 /HPF (0-1); SQUAMOUS EPITHELIAL CELL,UR FEW /HPF (0-2)
[2022-05-05 22:13] LABS: BASOPHILS % (AUTO) 0.9 % (0.0-5.0); EOSINOPHILS % (AUTO) 3.6 % (0.0-8.0); HEMATOCRIT 43.5 % (36-48); LYMPHOCYTES % (AUTO) 38.6 % (21.0-51.0); MEAN CORPUSCULAR HEMOGLOBIN 30.1 pg (27.0-33.0); MEAN CORPUSCULAR HGB CONC 33.8 g/dL (32.0-36.0); MEAN CORPUSCULAR VOLUME 89.1 fL (79-99); MONOCYTES % (AUTO) 8.6 % (3.0-13.0); NEUTROPHILS % (AUTO) 48.1 % (40.0-77.0); PLATELET COUNT (AUTO) 316 K/uL (130-400); RED BLOOD CELL COUNT(AUTO) 4.88 MIL/uL (4.00-5.50); RED CELL DISTRIBUTION WIDTH 12.7 % (11.0-15.5); WHITE BLOOD COUNT (AUTO) 6.4 K/uL (4.8-10.8)
[2022-05-05 22:38] LABS: ALBUMIN 3.9 g/dL (3.5-5.0); CREATININE 0.8 mg/dL (0.5-1.5); POTASSIUM 3.7 mmol/L (3.5-5.1); TOTAL PROTEIN, SERUM 8.5 g/dL (6.0-8.3)
[2022-05-05 23:30] VITALS: BP 126/72
[2022-05-05] MEDS ORDERED: MAG/ALUM/SIMETH 30 ML UDCUP ONE (23:56)
[2022-05-05] MEDS ORDERED: ONDANSETRON ODT 4MG TAB ONE (23:56)
[2022-05-05] MEDS ORDERED: LIDOCAINE HCL 2% VISCOUS 15 ML UDCUP ONE (23:56)
[2022-05-06] MEDS ORDERED: LIDOCAINE HCL 2% VISCOUS 15 ML UDCUP PO ONE
[2022-05-06] MEDS ORDERED: ONDANSETRON ODT 4MG TAB SL ONE
[2022-05-06] MEDS ORDERED: MAG/ALUM/SIMETH 30 ML UDCUP PO ONE
[2022-05-06] MEDS ORDERED: OMEP20TA20 PO (00:13)
== END 2022-05-06 00:19 | disposition home or self-care (01) ==
LOC: EDH 21:04
DX: K52.9 Noninfective gastroenteritis and colitis, unspecified (principal); E11.9 Type 2 diabetes mellitus without complications; I10 Essential (primary) hypertension; E78.00 Pure hypercholesterolemia, unspecified; E66.01 Morbid (severe) obesity due to excess calories; Z68.32 Body mass index [BMI] 32.0-32.9, adult; Z88.6 Allergy status to analgesic agent; Z79.899 Other long term (current) drug therapy; Z90.49 Acquired absence of other specified parts of digestive tract
CPT/HCPCS: 36415; 74176; 80053; 81001; 83605; 83690; 85025

== ENCOUNTER 2022-07-24 22:27 | Emergency (ER) | payer OTHER ==
[~2022-07-24] VITALS: Ht 165.1 cm; Wt 85.7 kg
[~2022-07-24 22:27] MED LIST changes: +OMEP20TA20 PO
[2022-07-25 01:23] LABS: BASOPHILS % (AUTO) 0.9 % (0.0-5.0); EOSINOPHILS % (AUTO) 3.1 % (0.0-8.0); HEMATOCRIT 40.4 % (36-48); LYMPHOCYTES % (AUTO) 36.6 % (21.0-51.0); MEAN CORPUSCULAR HEMOGLOBIN 30.2 pg (27.0-33.0); MEAN CORPUSCULAR HGB CONC 34.2 g/dL (32.0-36.0); MEAN CORPUSCULAR VOLUME 88.4 fL (79-99); MONOCYTES % (AUTO) 9.2 % (3.0-13.0); PLATELET COUNT (AUTO) 275 K/uL (130-400); RED BLOOD CELL COUNT(AUTO) 4.57 MIL/uL (4.00-5.50); RED CELL DISTRIBUTION WIDTH 13.2 % (11.0-15.5); WHITE BLOOD COUNT (AUTO) 5.8 K/uL (4.8-10.8)
[2022-07-25] MEDS ORDERED: DIPHENOXYLATE HCL/ATROPINE 2.5/0.025 MG TAB PO ONE (01:30)
[2022-07-25] MEDS ORDERED: LACTATED RINGERS 1000ML 1,000 ML IV ONE (01:30)
[2022-07-25] MEDS ORDERED: ONDANSETRON 4MG INJ IVP ONE (01:30)
[2022-07-25 01:32] LABS: CREATININE 0.8 mg/dL (0.5-1.5); POTASSIUM 3.5 mmol/L (3.5-5.1)
[2022-07-25 01:44] LABS: ALBUMIN 3.9 g/dL (3.5-5.0); TOTAL PROTEIN, SERUM 8.1 g/dL (6.0-8.3)
[2022-07-25] MEDS ORDERED: DIPH1TAB PO (03:13)
[2022-07-25 03:23] VITALS: BP 135/74
== END 2022-07-25 03:39 | disposition home or self-care (01) ==
LOC: EDH 22:27
DX: R19.7 Diarrhea, unspecified (principal); E86.0 Dehydration; I10 Essential (primary) hypertension; E78.00 Pure hypercholesterolemia, unspecified; E11.9 Type 2 diabetes mellitus without complications; M19.90 Unspecified osteoarthritis, unspecified site; Z88.6 Allergy status to analgesic agent; Z88.8 Allergy status to other drugs, medicaments and biological substances; Z90.49 Acquired absence of other specified parts of digestive tract; Z79.899 Other long term (current) drug therapy; Z20.822 Contact with and (suspected) exposure to COVID-19
CPT/HCPCS: 99283; 87635; 80053; 83690; 85025; 87804 ×2; 36415; 96374; 96361; C9803; J7120; J2405

== ENCOUNTER 2022-10-03 13:23 | Emergency (ER) | payer OTHER ==
[~2022-10-03] VITALS: Ht 160 cm; Wt 81.6 kg
[~2022-10-03 13:23] MED LIST changes: +DIPH1TAB PO
[2022-10-03 13:33] VITALS: O2SAT 98
[2022-10-03 13:34] VITALS: BP 165/88; PULSE 96; RESP 18
[2022-10-04] MEDS ORDERED: CYCL-309 PO (22:31)
[2022-10-04] MEDS ORDERED: MELO10CA3 PO (22:31)
== END 2022-10-03 14:16 | disposition left against medical advice (07) ==
LOC: EDH 13:23
DX: G58.8 Other specified mononeuropathies (principal); Z53.21 Procedure and treatment not carried out due to patient leaving prior to being seen by health care provider
CPT/HCPCS: 99281

== ENCOUNTER 2022-10-04 18:24 | Emergency (ER) | payer OTHER ==
[~2022-10-04] VITALS: Ht 165.1 cm; Wt 81.6 kg
[2022-10-04 18:33] VITALS: BP 125/76; PULSE 70; RESP 16; O2SAT 99
[2022-10-04] MEDS ORDERED: HYDROCODONE/ACETAMINOPHEN 7.5/325 MG TAB PO ONE (20:00)
[2022-10-04 21:30] LABS: BASOPHILS # (AUTO) 0.07 K/uL (0.00-0.20); BASOPHILS % (AUTO) 1.2 % (0.0-5.0); EOSINOPHILS # (AUTO) 0.17 K/uL (0.00-0.70); EOSINOPHILS % (AUTO) 2.8 % (0.0-8.0); IMMATURE GRANULOCYTE ABSOLUTE 0.01 K/uL (0-1); MEAN CORPUSCULAR HEMOGLOBIN 30.9 pg (27.0-33.0); MEAN CORPUSCULAR HGB CONC 34.4 g/dL (32.0-36.0); MEAN CORPUSCULAR VOLUME 90.1 fL (79-99); MONOCYTES # (AUTO) 0.5 K/uL (0.1-1.0); MONOCYTES % (AUTO) 8.2 % (3.0-13.0); NEUTROPHILS # (AUTO) 3.3 K/uL (1.8-7.7); NEUTROPHILS % (AUTO) 54.6 % (40.0-77.0); PLATELET COUNT (AUTO) 293 K/uL (130-400); RED BLOOD CELL COUNT(AUTO) 4.33 MIL/uL (4.00-5.50); RED CELL DISTRIBUTION WIDTH 13.5 % (11.0-15.5)
[2022-10-04] MEDS ORDERED: KETOROLAC 60 MG VIAL (30MG/ML) IM ONE (21:30)
[2022-10-04] MEDS ORDERED: DIAZEPAM 5 MG TABLET PO ONE (21:30)
[2022-10-04 21:40] LABS: POTASSIUM 3.5 mmol/L (3.5-5.1)
[2022-10-04] MEDS ORDERED: CYCL-309 PO (22:31)
[2022-10-04] MEDS ORDERED: MELO10CA3 PO (22:31)
== END 2022-10-04 22:40 | disposition home or self-care (01) ==
LOC: EDH 18:24
DX: M54.2 Cervicalgia (principal); M62.838 Other muscle spasm; E11.9 Type 2 diabetes mellitus without complications; E78.00 Pure hypercholesterolemia, unspecified; I10 Essential (primary) hypertension; M19.90 Unspecified osteoarthritis, unspecified site; Z79.01 Long term (current) use of anticoagulants; Z79.52 Long term (current) use of systemic steroids; Z88.6 Allergy status to analgesic agent; Z90.49 Acquired absence of other specified parts of digestive tract
CPT/HCPCS: 99285; 72125; 82550; 80048; 85025; 83605; 36415; 72128; 96372; J1885

== ENCOUNTER 2022-10-16 15:34 | Emergency (ER) | payer OTHER ==
[~2022-10-16] VITALS: Ht 165.1 cm; Wt 82.1 kg
[~2022-10-16 15:34] MED LIST changes: +CYCL-309 PO; +MELO10CA3 PO
[2022-10-16] MEDS ORDERED: TRIAMCINOLONE ACETONIDE 40 MG/ML 1ML VIAL IM STA (16:01)
[2022-10-16] MEDS ORDERED: ORPHENADRINE CITRATE 30 MG/ML ML IM ONE (16:30)
[2022-10-16 16:59] VITALS: BP 152/80; PULSE 89; RESP 16; O2SAT 98
[2022-10-16] MEDS ORDERED: METH4TAB PO (17:08)
[2022-10-16] MEDS ORDERED: ACET-66 PO (17:08)
== END 2022-10-16 17:16 | disposition home or self-care (01) ==
LOC: EDH 15:34
DX: S46.812A Strain of other muscles, fascia and tendons at shoulder and upper arm level, left arm, initial encounter (principal); Z90.49 Acquired absence of other specified parts of digestive tract; Z79.899 Other long term (current) drug therapy; Z98.890 Other specified postprocedural states; Z88.6 Allergy status to analgesic agent; Z88.8 Allergy status to other drugs, medicaments and biological substances; X58.XXXA Exposure to other specified factors, initial encounter; Y93.89 Activity, other specified; Y92.89 Other specified places as the place of occurrence of the external cause; Y99.8 Other external cause status
CPT/HCPCS: 99284; 73080; 96372 ×2; J3301; J2360

== ENCOUNTER → 2023-08-06 | Outpatient (CLI) | payer OTHER ==
[~2023-08-06] MED LIST changes: +ACET-66 PO; +METH4TAB PO
== END | disposition home or self-care (01) ==
LOC: RAH 15:32
PROVIDERS: ATTEND Internal Medicine
DX: M47.816 Spondylosis without myelopathy or radiculopathy, lumbar region (principal); M19.011 Primary osteoarthritis, right shoulder; M25.511 Pain in right shoulder; M54.50 Low back pain, unspecified
CPT/HCPCS: 72100; 73030

== ENCOUNTER 2023-09-23 17:17 | Emergency (ER) | payer BC, OTHER ==
[~2023-09-23] VITALS: Ht 165.1 cm; Wt 85.7 kg
[2023-09-23 17:44] VITALS: BP 145/89; PULSE 97; RESP 20
[2023-09-23] MEDS: GUAIFENESIN-DM 200/20 MG 10 ML PO ONE (18:51)
[2023-09-23] MEDS: HYDROCODONE/ACETAMINOPHEN 5/325 MG TAB PO ONE (18:52)
[2023-09-23 19:46] LABS: INFLUENZA TYPE A Negative For Type A (NEGATIVE); INFLUENZA TYPE B Negative For Type B (NEGATIVE); SARS-CoV-2, RNA, NAAT POSITIVE SARS CoV-2 (NEGATIVE)
[2023-09-23] MEDS ORDERED: ONDA-243 PO (19:52)
[2023-09-23] MEDS ORDERED: TRAM-530 PO (19:52)
== END 2023-09-23 20:08 | disposition home or self-care (01) ==
LOC: EDH 17:17
DX: U07.1 COVID-19 (principal); R51.9 Headache, unspecified; Z79.01 Long term (current) use of anticoagulants; Z79.1 Long term (current) use of non-steroidal anti-inflammatories (NSAID); Z79.52 Long term (current) use of systemic steroids; Z88.6 Allergy status to analgesic agent; Z90.49 Acquired absence of other specified parts of digestive tract; Z98.51 Tubal ligation status
CPT/HCPCS: 87635; 87804

== ENCOUNTER 2024-05-21 14:50 | Emergency (ER) | payer BC ==
[~2024-05-21] VITALS: Ht 165.1 cm; Wt 82.6 kg
[~2024-05-21 14:50] MED LIST changes: +ONDA-243 PO; +TRAM-543 PO
--- NOTE | 2024-05-21 15:55 | EKG ---
[facility] Test Date: 2024-05-21 Test Time: 15:54:08 Pat Name: REYNA MUNGUIA Department: ED Room: Gender: F Clinical Field Specialist: [id number] : 1970 Requested By: TINY BRADEN Order Number: [id number] Reading MD: Ramírez Monk Measurements Intervals Filer Rate: 90 P: 46 MI: 119 QRS: 35 QRSD: 75 T: 44 QT: 378 QTc: 464 Interpretive Statements Sinus rhythm Probable left atrial enlargement Compared to ECG 06/29/2021 09:07:28 Left ventricular hypertrophy no longer present Electronically Signed On 05-23-2024 14:47:50 CDT by Ramírez Monk Please click the below link to view image of tracing.
[2024-05-21 16:12] LABS: BASOPHILS # (AUTO) 0.08 K/uL (0.00-0.20); BASOPHILS % (AUTO) 1.2 % (0.0-5.0); EOSINOPHILS # (AUTO) 0.18 K/uL (0.00-0.70); EOSINOPHILS % (AUTO) 2.8 % (0.0-8.0); HEMATOCRIT 44.1 % (36-48); IMMATURE GRANULOCYTE ABSOLUTE 0.02 K/uL (0-1); LYMPHOCYTES # (AUTO) 2.2 K/uL (1.0-4.8); LYMPHOCYTES % (AUTO) 33.3 % (21.0-51.0); MEAN CORPUSCULAR HEMOGLOBIN 29.6 pg (27.0-33.0); MEAN CORPUSCULAR HGB CONC 34.2 g/dL (32.0-36.0); MEAN CORPUSCULAR VOLUME 86.5 fL (79-99); MONOCYTES # (AUTO) 0.3 K/uL (0.1-1.0); MONOCYTES % (AUTO) 4.9 % (3.0-13.0); NEUTROPHILS # (AUTO) 3.7 K/uL (1.8-7.7); NEUTROPHILS % (AUTO) 57.5 % (40.0-77.0); PLATELET COUNT (AUTO) 271 K/uL (130-400); RED CELL DISTRIBUTION WIDTH 12.2 % (11.0-15.5); WHITE BLOOD COUNT (AUTO) 6.5 K/uL (4.8-10.8)
[2024-05-21 16:22] LABS: INR 1.02 (0.85-1.15); PROTHROMBIN TIME 10.8 SEC (9.6-11.6)
[2024-05-21] MEDS: PROCHLORPERAZINE 10MG/2ML INJ IV ONE (16:25)
[2024-05-21] MEDS: 0.9%NACL 1000ML 1,000 ML IV ONE (16:25)
[2024-05-21] MEDS: DiphenhydrAMINE HCL 50 MG/ML VIAL IV ONE (16:25)
[2024-05-21 16:26] LABS: CREATININE 0.9 mg/dL (0.5-1.0); POTASSIUM 3.8 mmol/L (3.5-5.1)
[2024-05-21] MEDS: acetaMINOPHEN 500 MG TABLET PO ONE (16:26)
--- NOTE | 2024-05-21 16:27 | ERN ---
General Chief Complaint: Headache Stated Complaint: HEADACHE, HIGH BP, PALPITATIONS Time Seen by MD: 14:51 Source: patient History of Present Illness Initial Comments 53-year-old female coming in with a headache and chest pressure. Per patient these symptoms began a couple of days ago was evaluated by PCP but states that the symptoms still progressed. She states that the headache has been ongoing for two weeks it is pending a CT decided to come in for further evaluation. Allergies: Coded Allergies: ibuprofen (Unverified Allergy, Unknown, 09/29/19) naproxen (Unverified Allergy, Unknown, 09/29/19) Home Meds Active Scripts Tramadol HCl/Acetaminophen (Tramadol-Acetaminophn 37.5-325) 37.5 Mg-325 Mg Table t, 1 EACH PO q8 hour PRN, #7 TAB Prov:DANNIELLE VALDEZ NP 09/23/23 Ondansetron (Ondansetron Odt) 4 Mg Tab.rapdis, 4 MG PO Q6HPRN PRN for nausea, #15 TAB 0 Refills Prov:DANNIELLE VALDEZ NP 09/23/23 Acetaminophen (Tylenol) 500 Mg Tab, 500 MG PO Q6HPRN for 5 Days, #30 TAB Prov:TINY BRADEN MD 10/16/22 Methylprednisolone (Medrol) 4 Mg Tablet, 4 MG PO BID for 7 Days, #14 TAB Prov:TINY BRADEN MD 10/16/22 Cyclobenzaprine HCl (Cyclobenzaprine HCl) 10 Mg Tablet, 10 MG PO q8 hours PRN for Muscle spasm, #30 TAB 0 Refills Prov:DANNIELLE VALDEZ NP 10/04/22 Meloxicam, Submicronized (Meloxicam) 10 Mg Capsule, 7.5 MG PO daily in hte morning for 30 Days, #30 CAP 0 Refills Prov:DANNIELLE VALDEZ NP 10/04/22 Diphenoxylate HCl/Atropine (Lomotil Tablet) 1 Each Tablet, 2 TAB PO Q6HPRN PRN for DIARRHEA for 5 Days, #10 TAB 0 Refills Prov:KOFI WILKINSON MD 07/25/22 Omeprazole (Omeprazole) 20 Mg Tablet.dr, 20 MG PO ONCE for GASTROENTERITIS for 30 Days, #30 TAB Prov:SHERIE WORRELL DNP 05/06/22 Dexamethasone (Decadron) 6 Mg Tablet, 6 MG PO DAILY for 7 Days, #7 TAB Prov:ANYI HERNANDEZ 08/06/21 Acetaminophen with Codeine (Acetaminophen-Cod #3 Tablet) 1 Each Tablet, 1-2 TAB PO Q6H PRN for SEVERE PAIN (7-10), #12 TAB 0 Refills Prov:NASIR ROMAN MD 06/29/21 Tizanidine HCl (Tizanidine HCl) 4 Mg Capsule, 4 MG PO TIDP PRN for MUSCLE SPASMS, #20 CAP 0 Refills Prov:NASIR ROAMN MD 06/29/21 Famotidine (Pepcid) 20 Mg Tablet, 20 MG PO BID, #30 TAB Prov:ANYI HERNANDEZ 04/16/21 Cetirizine HCl (Zyrtec Syrup 1 mg/1 ml) 1 Mg/1 Ml Solution, 10 MG PO BID for 5 Days, #120 ML Prov:ANYI HERNANDEZ 04/16/21 Benzonatate (Benzonatate) 100 Mg Capsule, 200 MG PO TID PRN for cough for 10 Days, #30 CAP Prov:WILMER FRAGA [facility] 10/05/19 Apixaban (Eliquis) 2.5 Mg Tablet, 2.5 MG PO BID for 30 Days, #60 TAB Prov:WILMER FRAGA [employer] 10/05/19 Dexamethasone (Dexamethasone) 6 Mg Tablet, 6 MG PO DAILY for 4 Days, #4 TAB Prov:WILMER FRAGA [employer] 10/05/19 Past Medical History Past Medical History: Diabetes-Type II, High Cholesterol, Hypertension, Other Medical History Other: GASTROINTESTINAL Past Surgical History: Cholecystectomy, BTL Surgical History Other: TUBAL LIGATION, LT HAND, SURGICAL IMPLANT FOR BOWEL ISSUE Family History Family History: Negative Social History Social History: Negative, Lives with family, Other ROS Dictation CONSTITUTIONAL: No chills, no fever, no weakness, no diaphoresis, no malaise. HEAD/FACE: No signs of trauma. EENT: No eye pain, no blurred vision, no tearing, no double vision, no ear pain, no ear discharge, no nose pain, no nasal congestion, no throat pain, no throat swelling, no mouth pain. RESPIRATORY: No cough, no orthopnea, no SOB, no stridor, no wheezing. CARDIOVASCULAR: No chest pain, no edema, no palpitations, no syncope. GASTROINTESTINAL/ABDOMINAL: No abdominal pain, no constipation, no diarrhea, no nausea, no vomiting. GENITOURINARY: No abnormal discharge, no dysuria, no frequent urination, no hematuria. No complaints of pain in the genitals. MUSCULOSKELETAL: No back pain, no gout, no joint pain, no joint swelling, no muscle pain, no muscle stiffness, no neck pain. INTEGUMENTARY: No change in color, no change in hair/nails, no dryness, no lesion, no lumps, no rash. NEUROLOGICAL/PSYCH: No anxiety, not depressed, no emotional problem, no headache, no numbness, no pre-existing deficit, no history of seizures, no tremors, no weakness. HEMATOLOGIC/LYMPHATIC: Not anemic, no history of blood clots, no apparent bleeding, no bruising, glands not swollen. All Systems Negative, Except as Noted. Physical Exam Physical Exam Dictation VITAL SIGNS: Reviewed. GENERAL APPEARANCE: Alert, oriented x3, no acute distress, obese. HEAD AND FACE: Non-traumatic. EYES: PERRL, pink conjunctivas, eyelid no trauma, anterior chamber clear. EARS: Pinnas intact and no signs of trauma or erythema. Ear canals clear and no discharge. TMs no erythema. NOSE: No discharge, no bleeding. OROPHARYNX: Mouth normal, teeth no caries, tongue pink. Pharynx clear, no erythema. Tonsils no exudates, no abscesses noted. Mucous membrane moist. NECK: Supple, non-tender, no thyromegaly, no masses, no JVD, no bruits. BREAST: Deferred. CHEST: No tenderness, no crepitus, no paradoxical movement, no retractions. LUNGS: Clear, well-ventilated, symmetric, no rales, no wheezing, no rhonchi, no stridor, good breath sounds bilaterally. HEART: Regular rate, regular rhythm, no murmur, no gallops. VASCULAR: No peripheral edema. ABDOMEN: Soft, positive bowel sounds, nondistended, no guarding, nontender, no rebound, no masses no hepatomegaly, no splenomegaly, no Benitez's sign, no hernias. RECTAL: Deferred. GENITAL: Deferred. NEUROLOGICAL: Normal speech, gross motor function intact, gross sensory function intact. MUSCULOSKELETAL: Neck nontender, full range of motion, back nontender, full range of motion. EXTREMITIES: Nontender, full range of motion. SKIN: Color pink, dry, no turgor, no rash, no lacerations, no abrasions, no contusions. LYMPHATICS: Deferred. Results Laboratory and Microbiology Lab and Micro Result Laboratory Tests Test 05/21/24 15:59 05/21/24 18:35 White Blood Count 6.5 K/uL (4.8-10.8) Red Blood Count 5.10 MIL/uL (4.00-5.50) Hemoglobin 15.1 g/dL (12.0-16.0) Hematocrit 44.1 % (36-48) Mean Corpuscular Volume 86.5 fL (79-99) Mean Corpuscular Hemoglobin 29.6 pg (27.0-33.0) Mean Corpuscular Hemoglobin Concent 34.2 g/dL (32.0-36.0) Red Cell Distribution Width 12.2 % (11.0-15.5) Platelet Count 271 K/uL (130-400) Mean Platelet Volume 10.8 fL (7.5-10.5) H Immature Granulocyte % (Auto) 0.3 % (0-1) Neutrophils (%) (Auto) 57.5 % (40.0-77.0) Lymphocytes (%) (Auto) 33.3 % (21.0-51.0) Monocytes (%) (Auto) 4.9 % (3.0-13.0) Eosinophils (%) (Auto) 2.8 % (0.0-8.0) Basophils (%) (Auto) 1.2 % (0.0-5.0) Neutrophils # (Auto) 3.7 K/uL (1.8-7.7) Lymphocytes # (Auto) 2.2 K/uL (1.0-4.8) Monocytes # (Auto) 0.3 K/uL (0.1-1.0) Eosinophils # (Auto) 0.18 K/uL (0.00-0.70) Basophils # (Auto) 0.08 K/uL (0.00-0.20) Absolute Immature Granulocyte (auto 0.02 K/uL (0-1) Nucleated Red Blood Cells 0.0 % (0.0-0.19) Prothrombin Time 10.8 SEC (9.6-11.6) Prothromb Time International Ratio 1.02 (0.85-1.15) Sodium Level 138 mmol/L (136-145) Potassium Level 3.8 mmol/L (3.5-5.1) Chloride Level 100 mmol/L (101-111) L Carbon Dioxide Level 29 mmol/L (21-32) Blood Urea Nitrogen 13 mg/dL (7-18) Creatinine 0.9 mg/dL (0.5-1.0) Glomerular Filtration Rate Calc 77 mL/min (>90) Random Glucose 257 mg/dL (70-105) H Total Calcium 9.7 mg/dL (8.5-10.1) Magnesium Level 1.90 mg/dL (1.80-2.40) Total Creatine Kinase 63 U/L (21-232) # Troponin I High Sensitivity 5.1 ng/L (4-50) Urine Color COLORLESS (YELLOW) Urine Appearance CLEAR (CLEAR) Urine pH 6.0 (5.0-8.0) Urine Specific [place] 1.035 (1.001-1.031) Urine Protein NEGATIVE mg/dL (NEGATIVE) Urine Glucose (UA) >=1000 mg/dL (NEGATIVE) H Urine Ketones NEGATIVE mg/dL (NEGATIVE) Urine Occult Blood NEGATIVE (NEGATIVE) Urine Nitrate NEGATIVE (NEGATIVE) Urine Bilirubin NEGATIVE mg/dL (NEGATIVE) Urine Urobilinogen 0.2 mg/dL (0.2-1.0) Urine Leukocyte Esterase NEGATIVE Mercedes/uL Labs Reviewed?: Yes EKG/XRAY/US/CT/MRI EKG Comment 05/21/2024 time 3:54 p.m. Ventricular rate 90 Sinus rhythm [place] [address] wave elevation or depression X-RAY Comment [place] [address] [address] IMAGING REPORT Signed PATIENT: REYNA MUNGUIA MR#: [id number] : 1970 SEX: F AGE: 53 LOCATION: [facility] ORDER [id number] STATUS: REG ER REPORT#: [id number] SERVICE [id number] REASON: cp ORDERING PHYSICIAN: TINY BRADEN MD PROCEDURE: CXR1VW - CHEST 1VW PORTABLE CHEST RADIOGRAPH INDICATION: cp COMPARISON: 06/29/2021 FINDINGS: Heart size is normal. The pulmonary vascularity and isaac appear normal. No abnormal pulmonary parenchymal opacity or consolidation identified. No significant pleural effusion noted. No pneumothorax detected. IMPRESSION: No radiographic evidence for any acute cardiopulmonary process. DICTATED BY: ALFREDO RAO MD DATE: 05/21/241723 ELECTRONICALLY SIGNED BY: ALFREDO RAO MD DATE: 05/21/241725 MDM MDM: Differential diagnosis: Rationale: Tests considered and ordered secondary to shared decision making include: Previous outside records reviewed: Old ER visits. Risk of complication and/or morbidity or mortality of patient management: None Medications-Per medication reconciliation Need for hospitalization: Patient does not meet criteria for hospitalization. Need for emergency major/minor surgery: No There are no social concerns with this patient. Prescription drug management Prescriptions will include symptomatic care Patient's prior external medical records from other ER visits were reviewed by me as indicated. Prior testing and results from previous visits were reviewed. Prior tests were taken into account with medical decision making and resource utilization, independent historian/historians were used to obtain complete medical history. I independently interpreted the test that were performed, results were reviewed by me and considered findings on radiology if ordered. Medical management and examination interpretation discussions were had by me with other qualified healthcare professionals as indicated for the patient's care. ED Course Orders Procedure Category Date Status Time Cbc With Differential LAB 05/21/24 Complete 15:19 Prothrombin Time With LAB 05/21/24 Complete INR 15:40 Chest 1vw RAD 05/21/24 Resulted 15:40 12 Lead Ekg Tracing- EKG 05/21/24 Complete Technical 15:40 0.9%Nacl 1000ml (Ns PHA 05/21/24 Complete 1000ml) 16:00 Magnesium LAB 05/21/24 Complete 15:40 Urinalysis Profile LAB 05/21/24 In Process 15:40 Basic Metabolic Panel LAB 05/21/24 Complete 15:40 Prochlorperazine PHA 05/21/24 Complete 10mg/2ml Inj 16:00 Diphenhydramine Hcl PHA 05/21/24 Complete (Benadryl Inj) 16:00 Acetaminophen 500mg PHA 05/21/24 Complete Tab (Tylenol 500mg T 16:00 Cardiac Panel LAB 05/21/24 Complete 15:59 Current Medications Medications (Trade) Dose Ordered Sig/Maximino Route PRN Reason Start Time Stop Time Status Last Admin Dose Admin Acetaminophen (TYLenol 500MG TAB) 500 mg ONCE ONCE PO 05/21/24 16:00 05/21/24 16:01 DC 05/21/24 16:26 Diphenhydramine HCl (BENAdryl INJ) 25 mg ONCE ONCE IV 05/21/24 16:00 05/21/24 16:01 DC 05/21/24 16:25 Prochlorperazine Edisylate (Compazine 10mg/ 2ml Inj) 10 mg ONCE ONCE IV 05/21/24 16:00 05/21/24 16:01 DC 05/21/24 16:25 Sodium Chloride 1,000 ml @ 0 mls/hr ONCE ONCE IV 05/21/24 16:00 05/21/24 16:01 DC 05/21/24 16:25 Vital Signs Date Time Temp Pulse Resp B/P (MAP) Pulse Ox O2 Delivery O2 Flow Rate FiO2 05/21/24 15:19 99.1 96 16 148/87 97 Room Air DX & DISP Disposition: Discharge Decision to Admit Time: 18:48 Departure Impression: Primary Impression: Tension headache Additional Impression: Dehydration Condition: Stable Scripts Lidocaine (Lidocaine Pain Relief) 4 % Adh..patch 1 PATCH TP DAILY for 7 Days, #30 PATCH 0 Refills Prov: TINY BRADEN MD 05/21/24 Additional Instructions: FOLLOW-UP WITH PRIMARY CARE PROVIDER IN 1 TO 2 DAYS. TAKE MEDICATIONS DIRECTED HERE IN THE EMERGENCY ROOM. OKAY TO CONTINUE HOME MEDICATIONS UNLESS OTHERWISE DISCUSSED DURING YOUR VISIT IN THE EMERGENCY ROOM TODAY. RETURN TO YOUR NEAREST EMERGENCY ROOM IF SYMPTOMS WORSEN OR IF THERE IS NO IMPROVEMENT. CALL 911 IF YOU NEED IMMEDIATE ASSISTANCE. TAKE TYLENOL [id number] NEEDED AND IF NO CONTRAINDICATIONS ARE PRESENT. INCREASE ORAL HYDRATION. A WOUND CULTURE OR URINE CULTURE WAS ORDERED HERE IN THE EMERGENCY ROOM DEPARTMENT PLEASE FOLLOW-UP WITH PRIMARY CARE PROVIDER AND ADVISE THEM TO GET REPEAT PORTS FROM OUR FACILITY. IF YOU HAD ANY LEXI WRAP/SPLINTS THAT WERE APPLIED HERE, PLEASE DO NOT REMOVE THEM UNTIL YOU SEE YOUR PRIMARY CARE OR SPECIALTY. REFERRALS: Referrals: DESI BOWEN MD (PCP) Time of Disposition: 18:48 TINY BRADEN MD May 21, 2024 16:27
[2024-05-21 16:34] LABS: MAGNESIUM 1.9 mg/dL (1.80-2.40)
--- NOTE | 2024-05-21 17:26 | HMCIMG ---
PORTABLE CHEST RADIOGRAPH INDICATION: cp COMPARISON: 06/29/2021 FINDINGS: Heart size is normal. The pulmonary vascularity and isaac appear normal. No abnormal pulmonary parenchymal opacity or consolidation identified. No significant pleural effusion noted. No pneumothorax detected. IMPRESSION: No radiographic evidence for any acute cardiopulmonary process.
[2024-05-21 18:46] LABS: ADD UA MICROSCOPIC YES; APPEARANCE,URINE CLEAR (CLEAR); BILIRUBIN,URINE NEGATIVE (NEGATIVE); COLOR,URINE COLORLESS (YELLOW); GLUCOSE, URINE (UA) >=1000 mg/dL (NEGATIVE); KETONES,URINE NEGATIVE (NEGATIVE); LEUKOCYTE ESTERASE ,URINE NEGATIVE Leu/uL (NEGATIVE); NITRATE,URINE NEGATIVE (NEGATIVE); OCCULT BLOOD,URINE NEGATIVE (NEGATIVE); PROTEIN,URINE NEGATIVE (NEGATIVE); UROBILINOGEN,URINE 0.2 mg/dL (0.2-1.0)
[2024-05-21 18:48] LABS: BACTERIA,URINE RARE /HPF (None Seen); MUCUS,URINE RARE LPF (None Seen); RBC,URINE 0-1 /HPF (0-1); SQUAMOUS EPITHELIAL CELL,UR RARE /HPF (0-2); WBC,URINE 0-1 /HPF (0-1)
[2024-05-21 18:50] VITALS: BP 147/87; PULSE 86; RESP 18; TEMP 98.4; O2SAT 98
[2024-05-21] MEDS ORDERED: LIDO1ADH71 TP (18:50)
== END 2024-05-21 18:53 | disposition home or self-care (01) ==
LOC: EDH 14:50
DX: G44.209 Tension-type headache, unspecified, not intractable (principal); E86.0 Dehydration; E11.9 Type 2 diabetes mellitus without complications; E78.00 Pure hypercholesterolemia, unspecified; I10 Essential (primary) hypertension; Z79.01 Long term (current) use of anticoagulants; Z79.1 Long term (current) use of non-steroidal anti-inflammatories (NSAID); Z79.52 Long term (current) use of systemic steroids; Z88.6 Allergy status to analgesic agent; Z90.49 Acquired absence of other specified parts of digestive tract; Z98.51 Tubal ligation status
CPT/HCPCS: 99284; 96374; 71045; 96361; 96375; 82550; 83735; 84484; 80048; 85025; 85610; 81001; 36415; 93005; J1200; J7030; J0780

== ENCOUNTER 2024-06-12 16:10 | Emergency (ER) | payer BC ==
[~2024-06-12] VITALS: Ht 165.1 cm; Wt 83.0 kg
[~2024-06-12 16:10] MED LIST changes: +LIDO1ADH71 TP
--- NOTE | 2024-06-12 17:49 | ERN ---
General Chief Complaint: Upper Extremity Pain/Injury Stated Complaint: RIGHT ELBOW PAIN Time Seen by MD: 16:12 Source: patient History of Present Illness Initial Comments Patient is a 53-year-old female coming in complaining of right upper extremity swelling and elbow discomfort. Per patient she hit herself in the right elbow two weeks ago started having some pain and discomfort she states that three days ago in his distal extremity started getting swollen. She was here for further evaluation. Allergies: Coded Allergies: ibuprofen (Unverified Allergy, Unknown, 09/29/19) naproxen (Unverified Allergy, Unknown, 09/29/19) Home Meds Active Scripts Lidocaine (Lidocaine Pain Relief) 4 % Adh..patch, 1 PATCH TP DAILY for 7 Days, #30 PATCH 0 Refills Prov:TINY BRADEN MD 05/21/24 Tramadol HCl/Acetaminophen (Tramadol-Acetaminophn 37.5-325) 37.5 Mg-325 Mg Tablet, 1 EACH PO q8 hour PRN, #7 TAB Prov:DANNIELLE VALDEZ NP 09/23/23 Ondansetron (Ondansetron Odt) 4 Mg Tab.rapdis, 4 MG PO Q6HPRN PRN for nausea, #15 TAB 0 Refills Prov:DANNIELLE VALDEZ NP 09/23/23 Acetaminophen (Tylenol) 500 Mg Tab, 500 MG PO Q6HPRN for 5 Days, #30 TAB Prov:TINY BRADEN MD 10/16/22 Methylprednisolone (Medrol) 4 Mg Tablet, 4 MG PO BID for 7 Days, #14 TAB Prov:TINY BRADEN MD 10/16/22 Cyclobenzaprine HCl (Cyclobenzaprine HCl) 10 Mg Tablet, 10 MG PO q8 hours PRN for Muscle spasm, #30 TAB 0 Refills Prov:DANNIELLE VALDEZ NP 10/04/22 Meloxicam, Submicronized (Meloxicam) 10 Mg Capsule, 7.5 MG PO daily in hte morning for 30 Days, #30 CAP 0 Refills Prov:DANNIELLE VALDEZ NP 10/04/22 Diphenoxylate HCl/Atropine (Lomotil Tablet) 1 Each Tablet, 2 TAB PO Q6HPRN PRN for DIARRHEA for 5 Days, #10 TAB 0 Refills Prov:KOFI WILKINSON MD 07/25/22 Omeprazole (Omeprazole) 20 Mg Tablet.dr, 20 MG PO ONCE for GASTROENTERITIS for 30 Days, #30 TAB Prov:SHERIE WORRELL DNP 05/06/22 Dexamethasone (Decadron) 6 Mg Tablet, 6 MG PO DAILY for 7 Days, #7 TAB Prov:ANYI HERNANDEZ 08/06/21 Acetaminophen with Codeine (Acetaminophen-Cod #3 Tablet) 1 Each Tablet, 1-2 TAB PO Q6H PRN for SEVERE PAIN (7-10), #12 TAB 0 Refills Prov:NASIR ROMAN MD 06/29/21 Tizanidine HCl (Tizanidine HCl) 4 Mg Capsule, 4 MG PO TIDP PRN for MUSCLE SPASMS, #20 CAP 0 Refills Prov:NASIR ROMAN MD 06/29/21 Famotidine (Pepcid) 20 Mg Tablet, 20 MG PO BID, #30 TAB Prov:ANYI HERNANDEZ 04/16/21 Cetirizine HCl (Zyrtec Syrup 1 mg/1 ml) 1 Mg/1 Ml Solution, 10 MG PO BID for 5 Days, #120 ML Prov:ANYI HERNANDEZ 04/16/21 Benzonatate (Benzonatate) 100 Mg Capsule, 200 MG PO TID PRN for cough for 10 Days, #30 CAP Prov:[facility] 10/05/19 Apixaban (Eliquis) 2.5 Mg Tablet, 2.5 MG PO BID for 30 Days, #60 TAB Prov:[facility] [facility] [employer] 10/05/19 Dexamethasone (Dexamethasone) 6 Mg Tablet, 6 MG PO DAILY for 4 Days, #4 TAB Prov:W[employer]MER [employer] 10/05/19 Past Medical History Past Medical History: Diabetes-Type II, High Cholesterol, Hypertension, Other Medical History Other: GASTROINTESTINAL Past Surgical History: Cholecystectomy, BTL Surgical History Other: TUBAL LIGATION, LT HAND, SURGICAL IMPLANT FOR BOWEL ISSUE Family History Family History: Negative Social History Social History: Negative, Lives with family, Other ROS Dictation CONSTITUTIONAL: No chills, no fever, no weakness, no diaphoresis, no malaise. HEAD/FACE: No signs of trauma. EENT: No eye pain, no blurred vision, no tearing, no double vision, no ear pain, no ear discharge, no nose pain, no nasal congestion, no throat pain, no throat swelling, no mouth pain. RESPIRATORY: No cough, no orthopnea, no SOB, no stridor, no wheezing. CARDIOVASCULAR: No chest pain, no edema, no palpitations, no syncope. GASTROINTESTINAL/ABDOMINAL: No abdominal pain, no constipation, no diarrhea, no nausea, no vomiting. GENITOURINARY: No abnormal discharge, no dysuria, no frequent urination, no hematuria. No complaints of pain in the genitals. MUSCULOSKELETAL: No back pain, no gout, no joint pain, no joint swelling, no muscle pain, no muscle stiffness, no neck pain. INTEGUMENTARY: No change in color, no change in hair/nails, no dryness, no lesion, no lumps, no rash. NEUROLOGICAL/PSYCH: No anxiety, not depressed, no emotional problem, no headache, no numbness, no pre-existing deficit, no history of seizures, no tremors, no weakness. HEMATOLOGIC/LYMPHATIC: Not anemic, no history of blood clots, no apparent bleeding, no bruising, glands not swollen. All Systems Negative, Except as Noted. Physical Exam Physical Exam Dictation VITAL SIGNS: Reviewed. GENERAL APPEARANCE: Alert, oriented x3, no acute distress, obese. HEAD AND FACE: Non-traumatic. EYES: PERRL, pink conjunctivas, eyelid no trauma, anterior chamber clear. EARS: Pinnas intact and no signs of trauma or erythema. Ear canals clear and no discharge. TMs no erythema. NOSE: No discharge, no bleeding. OROPHARYNX: Mouth normal, teeth no caries, tongue pink. Pharynx clear, no erythema. Tonsils no exudates, no abscesses noted. Mucous membrane moist. NECK: Supple, non-tender, no thyromegaly, no masses, no JVD, no bruits. BREAST: Deferred. CHEST: No tenderness, no crepitus, no paradoxical movement, no retractions. LUNGS: Clear, well-ventilated, symmetric, no rales, no wheezing, no rhonchi, no stridor, good breath sounds bilaterally. HEART: Regular rate, regular rhythm, no murmur, no gallops. VASCULAR: No peripheral edema. ABDOMEN: Soft, positive bowel sounds, nondistended, no guarding, nontender, no rebound, no masses no hepatomegaly, no splenomegaly, no Benitez's sign, no hernias. RECTAL: Deferred. GENITAL: Deferred. NEUROLOGICAL: Normal speech, gross motor function intact, gross sensory function intact. MUSCULOSKELETAL: Neck nontender, full range of motion, back nontender, full range of motion. EXTREMITIES: Nontender, full range of motion. Right several tenderness to palpation, unable to flex and extend did with the pain. SKIN: Color pink, dry, no turgor, no rash, no lacerations, no abrasions, no contusions. LYMPHATICS: Deferred. Results Laboratory and Microbiology Labs Reviewed?: Yes EKG/XRAY/US/CT/MRI X-RAY Comment Right elbow x-ray-right olecranon avulsion fracture MDM MDM: Differential diagnosis: Elbow contusion, elbow pain, olecron fracture, elbow dislocation, Rationale: Tests considered and ordered secondary to shared decision making include: Previous outside records reviewed: Old ER visits. Risk of complication and/or morbidity or mortality of patient management: None Patient is a 53-year-old female coming in to be evaluated for right elbow pain. Per patient she fell off of her bed three weeks ago she started having pain in her right elbow as of three days ago she started having some swelling in the distal right extremity. On x-ray there is a avulsion fracture of the all the crown of the right side small fracture. Posterior splint was placed patient will be discharged in stable condition. ED Course Orders Procedure Category Date Status Time Elbow Comp 3+Vws Lt RAD 06/12/24 Taken 16:43 Vital Signs Date Time Temp Pulse Resp B/P (MAP) Pulse Ox O2 Delivery O2 Flow Rate FiO2 06/12/24 17:37 99.0 89 16 160/84 98 Room Air* 0 21 06/12/24 16:11 99.0 89 16 160/84 98 Room Air DX & DISP Disposition: Discharge Departure Impression: Primary Impression: Olecranon fracture Condition: Stable Additional Instructions: FOLLOW-UP WITH PRIMARY CARE PROVIDER IN 1 TO 2 DAYS. TAKE MEDICATIONS DIRECTED HERE IN THE EMERGENCY ROOM. OKAY TO CONTINUE HOME MEDICATIONS UNLESS OTHERWISE DISCUSSED DURING YOUR VISIT IN THE EMERGENCY ROOM TODAY. RETURN TO YOUR NEAREST EMERGENCY ROOM IF SYMPTOMS WORSEN OR IF THERE IS NO IMPROVEMENT. CALL 911 IF YOU NEED IMMEDIATE ASSISTANCE. TAKE TYLENOL [id number] NEEDED AND IF NO CONTRAINDICATIONS ARE PRESENT. INCREASE ORAL HYDRATION. A WO UND CULTURE OR URINE CULTURE WAS ORDERED HERE IN THE EMERGENCY ROOM DEPARTMENT PLEASE FOLLOW-UP WITH PRIMARY CARE PROVIDER AND ADVISE THEM TO GET REPEAT PORTS FROM OUR FACILITY. IF YOU HAD ANY LEXI WRAP/SPLINTS THAT WERE APPLIED HERE, PLEASE DO NOT REMOVE THEM UNTIL YOU SEE YOUR PRIMARY CARE OR SPECIALTY. Referrals: Referrals: DESI BOWEN MD (PCP) MIGUEL SILVA MD Time of Disposition: 18:05 TINY BRADEN MD Jun 12, 2024 17:49
--- NOTE | 2024-06-12 18:26 | HMCIMG ---
LEFT ELBOW RADIOGRAPHS - 3 VIEWS INDICATION: Pain COMPARISON: 10/16/2022 FINDINGS: AP, lateral, and oblique views. No fracture or dislocation identified. No significant joint effusion is present. 1 cm traction enthesophyte along the olecranon process at the triceps tendon attachment. IMPRESSION: No evidence for fracture or dislocation.
[2024-06-12 18:37] VITALS: BP 147/78; PULSE 84; RESP 16; TEMP 98.7; O2SAT 98
--- NOTE | 2024-06-12 18:43 | NUR ---
SPLINT AND SLING APPLIED TO PT, PT TOLERATED WELL
== END 2024-06-12 18:39 | disposition home or self-care (01) ==
LOC: EDH 16:10
DX: S52.022A Displaced fracture of olecranon process without intraarticular extension of left ulna, initial encounter for closed fracture (principal); E11.9 Type 2 diabetes mellitus without complications; E78.00 Pure hypercholesterolemia, unspecified; I10 Essential (primary) hypertension; Z79.01 Long term (current) use of anticoagulants; Z79.1 Long term (current) use of non-steroidal anti-inflammatories (NSAID); Z79.52 Long term (current) use of systemic steroids; Z88.6 Allergy status to analgesic agent; Z90.49 Acquired absence of other specified parts of digestive tract; Z98.51 Tubal ligation status; X58.XXXA Exposure to other specified factors, initial encounter; Y93.89 Activity, other specified; Y92.89 Other specified places as the place of occurrence of the external cause; Y99.8 Other external cause status
CPT/HCPCS: 29105; 73080; 99283

== ENCOUNTER 2025-02-07 01:29 | Emergency (ER) | payer BC, MEDICAID ==
[~2025-02-07] VITALS: Ht 165.1 cm; Wt 81.6 kg
--- NOTE | 2025-02-07 01:31 | NUR ---
REPORT TO DR GARCIA, NO CODE STROKE CALLED
[2025-02-07 01:57] LABS: IMMATURE GRANULOCYTE ABSOLUTE 0.05 K/uL (0-1); NUCLEATED RED BLOOD CELLS 0.0 % (0.0-0.19); PLATELET COUNT (AUTO) 291 K/uL (130-400); RED BLOOD CELL COUNT(AUTO) 4.55 MIL/uL (4.00-5.50); RED CELL DISTRIBUTION WIDTH 12.9 % (11.0-15.5); WHITE BLOOD COUNT (AUTO) 8.3 K/uL (4.8-10.8)
[2025-02-07 02:04] LABS: APPEARANCE,URINE CLEAR (CLEAR); GLUCOSE, URINE (UA) >=1000 mg/dL (NEGATIVE); LEUKOCYTE ESTERASE ,URINE NEGATIVE Leu/uL (NEGATIVE); NITRATE,URINE NEGATIVE (NEGATIVE); OCCULT BLOOD,URINE NEGATIVE (NEGATIVE)
[2025-02-07 02:05] LABS: ADD UA MICROSCOPIC YES
[2025-02-07 02:06] LABS: SQUAMOUS EPITHELIAL CELL,UR RARE /HPF (0-2)
[2025-02-07 02:06] LABS: CREATININE 0.9 mg/dL (0.5-1.0); GLOMERULAR FILTR. RATE CALC 76 mL/min (>90); GLUCOSE,RANDOM 252 mg/dL (70-105); SODIUM SERUM 138 mmol/L (136-145); UREA NITROGEN, BLOOD 13 mg/dL (7-18)
[2025-02-07 02:08] LABS: INR 1.03 (0.85-1.15)
[2025-02-07 02:11] LABS: AMPHET/METH SCREEN,URINE NEGATIVE (NEGATIVE); BARBITURATE SCREEN, URINE NEGATIVE (NEGATIVE); CANNABINOID SCREEN,URINE NEGATIVE (NEGATIVE); COCAINE SCREEN,URINE NEGATIVE (NEGATIVE)
[2025-02-07 02:11] LABS: ASPARTATE AMINOTRANSFERASE 27 U/L (10-37); CREATINE KINASE, TOTAL 99 U/L (21-232); TOTAL PROTEIN, SERUM 8.2 g/dL (6.0-8.3)
[2025-02-07 02:12] LABS: ALCOHOL, BLOOD < 3 mg/dL (0-10)
--- NOTE | 2025-02-07 02:34 | ERN ---
General Chief Complaint: Multiple Complaints Stated Complaint: DIZZINESS, NAUSEA/VOMITING Time Seen by : 01:39 Time Seen by Midlevel: 01:39 Source: patient History of Present Illness Initial Comments Patient is a 54-year-old female with a past medical history of type 2 diabetes, hyperlipidemia, and hypertension presenting to the emergency department for evaluation of nausea and vomiting with the associated dizziness that started last night. She denies chest pain, headache, abdominal pain, or fever. On arrival with the patient is refusing a follow up commands. Allergies: Coded Allergies: ibuprofen (Unverified Allergy, Unknown, 09/29/19) naproxen (Unverified Allergy, Unknown, 09/29/19) Home Meds Active Scripts Lidocaine (Lidocaine Pain Relief) 4 % Adh..patch, 1 PATCH TP DAILY for 7 Days, #30 PATCH 0 Refills Prov:TINY BRADEN MD 05/21/24 Tramadol HCl/Acetaminophen (Tramadol-Acetaminophn 37.5-325) 37.5 Mg-325 Mg Tablet, 1 EACH PO q8 hour PRN, #7 TAB Prov:DANNIELLE VALDEZ 09/23/23 Ondansetron (Ondansetron Odt) 4 Mg Tab.rapdis, 4 MG PO Q6HPRN PRN for nausea, #15 TAB 0 Refills Prov:DANNEILLE VALDEZ 09/23/23 Acetaminophen (Tylenol) 500 Mg Tab, 500 MG PO Q6HPRN for 5 Days, #30 TAB Prov:TINY BRADEN MD 10/16/22 Methylprednisolone (Medrol) 4 Mg Tablet, 4 MG PO BID for 7 Days, #14 TAB Prov:TINY BRADEN MD 10/16/22 Cyclobenzaprine HCl (Cyclobenzaprine HCl) 10 Mg Tablet, 10 MG PO q8 hours PRN for Muscle spasm, #30 TAB 0 Refills Prov:DANNIELLE VALDEZ 10/04/22 Meloxicam, Submicronized (Meloxicam) 10 Mg Capsule, 7.5 MG PO daily in hte morning for 30 Days, #30 CAP 0 Refills Prov:DANNIELLE VALDEZ 10/04/22 Diphenoxylate HCl/Atropine (Lomotil Tablet) 1 Each Tablet, 2 TAB PO Q6HPRN PRN for DIARRHEA for 5 Days, #10 TAB 0 Refills Prov:KOFI WILKINSON MD 07/25/22 Omeprazole (Omeprazole) 20 Mg Tablet.dr, 20 MG PO ONCE for GASTROENTERITIS for 30 Days, #30 TAB Prov:SHERIE WORRELL DNP 05/06/22 Dexamethasone (Decadron) 6 Mg Tablet, 6 MG PO DAILY for 7 Days, #7 TAB Prov:ANYI HERNANDEZ 08/06/21 Acetaminophen with Codeine (Acetaminophen-Cod #3 Tablet) 1 Each Tablet, 1-2 TAB PO Q6H PRN for SEVERE PAIN (7-10), #12 TAB 0 Refills Prov:NASIR ROMAN MD 06/29/21 Tizanidine HCl (Tizanidine HCl) 4 Mg Capsule, 4 MG PO TIDP PRN for MUSCLE SPASMS, #20 CAP 0 Refills Prov:NASIR ROMAN MD 06/29/21 Famotidine (Pepcid) 20 Mg Tablet, 20 MG PO BID, #30 TAB Prov:ANYI HERNANDEZ 04/16/21 Cetirizine HCl (Zyrtec Syrup 1 mg/1 ml) 1 Mg/1 Ml Solution, 10 MG PO BID for 5 Days, #120 ML Prov:ANYI HERNANDEZ 04/16/21 Benzonatate (Benzonatate) 100 Mg Capsule, 200 MG PO TID PRN for cough for 10 Days, #30 CAP Prov:WILMER FRAGAP 10/05/19 Apixaban (Eliquis) 2.5 Mg Tablet, 2.5 MG PO BID for 30 Days, #60 TAB Prov:WILMER FRAGA MANAGER [employer] 10/05/19 Dexamethasone (Dexamethasone) 6 Mg Tablet, 6 MG PO DAILY for 4 Days, #4 TAB Prov:WILMER FRAGAP 10/05/19 Past Medical History Past Medical History: Diabetes-Type II, High Cholesterol, Hypertension, Other Medical History Other: GASTROINTESTINAL , RT KNEE PAIN Past Surgical History: Cholecystectomy, BTL Surgical History Other: TUBAL LIGATION, LT HAND, SURGICAL IMPLANT FOR BOWEL ISSUE Family History Family History: Negative Social History Social History: Negative, Lives with family, Other ROS Dictation CONSTITUTIONAL: Negative except for HPI HEAD/FACE: Negative except for HPI EENT: Negative except for HPI RESPIRATORY: Negative except for HPI GASTROINTESTINAL/ABDOMINAL: Negative except for HPI GENITOURINARY: Negative except for HPI MUSCULOSKELETAL: Negative except for HPI INTEGUMENTARY: Negative except for HPI NEUROLOGICAL/PSYCH: Negative except for HPI HEMATOLOGIC/LYMPHATIC: Negative except for HPI All Systems Negative, Except as noted above. 13 point review of systems assessed and all negative except for above. Physical Exam Physical Exam Dictation Vital Signs reviewed General Appearance: Alert, oriented x 3, no acute distress, well developed, nourished. Head and Face: non-traumatic. Eyes: PERRL, pink conjunctivas, eyelid no trauma, anterior chamber with arcus senilis. Ears: Pinnas intact and no signs of trauma or erythema ear canals clear and no discharge TM no erythema Nose: No discharge, no bleeding. Oropharynx: Mouth normal, tongue pink, pharynx clear,no erythema, tonsils no exudates, no abscesses noted, mucous membrane moist Neck: Supple, non-tender, no thyromegaly, no masses, no JVD, no bruits Breast:Deferred Chest:No tenderness, no crepitus, no paradoxical movement, no retractions Lungs:Clear, well-ventilated, symmetric, no rales, no wheezing, no rhonchi, no stridor, good breath sounds bilaterally Heart: Regular rate, regular rhythm, no murmur, no gallops Vascular: no peripheral edema, Abdomen: Soft, positive bowel sounds, nondistended, no guarding, nontender, no rebound, no masses no hepatomegaly, no splenomegaly, no Benitez's sign, no hernias. Rectal: Deferred Genital: Deferred Neurological: Normal speech, motor function intact, sensory function intact Musculoskeletal: Neck nontender, full range of motion, back nontender, full range of motion, Extremities: nontender, full range of motion Skin: Color pink, dry, no turgor, no rash, no lacerations, no abrasions, no cont usions. Lymphatic: Deferred Results Laboratory and Microbiology Lab and Micro Result Laboratory Tests Test 02/07/25 01:45 02/07/25 01:52 White Blood Count 8.3 K/uL (4.8-10.8) Red Blood Count 4.55 MIL/uL (4.00-5.50) Hemoglobin 13.7 g/dL (12.0-16.0) Hematocrit 40.0 % (36-48) Mean Corpuscular Volume 87.9 fL (79-99) Mean Corpuscular Hemoglobin 30.1 pg (27.0-33.0) Mean Corpuscular Hemoglobin Concent 34.3 g/dL (32.0-36.0) Red Cell Distribution Width 12.9 % (11.0-15.5) Platelet Count 291 K/uL (130-400) Mean Platelet Volume 10.5 fL (7.5-10.5) Immature Granulocyte % (Auto) 0.6 % (0-1) Neutrophils (%) (Auto) 67.4 % (40.0-77.0) Lymphocytes (%) (Auto) 26.8 % (21.0-51.0) Monocytes (%) (Auto) 4.7 % (3.0-13.0) Eosinophils (%) (Auto) 0.1 % (0.0-8.0) Basophils (%) (Auto) 0.4 % (0.0-5.0) Neutrophils # (Auto) 5.6 K/uL (1.8-7.7) Lymphocytes # (Auto) 2.2 K/uL (1.0-4.8) Monocytes # (Auto) 0.4 K/uL (0.1-1.0) Eosinophils # (Auto) 0.01 K/uL (0.00-0.70) Basophils # (Auto) 0.03 K/uL (0.00-0.20) Absolute Immature Granulocyte (auto 0.05 K/uL (0-1) Nucleated Red Blood Cells 0.0 % (0.0-0.19) Prothrombin Time 10.9 SEC (9.6-11.6) Prothromb Time International Ratio 1.03 (0.85-1.15) Activated Partial Thromboplast Time 21.1 SEC (26.3-35.5) L Sodium Level 138 mmol/L (136-145) Potassium Level 3.7 mmol/L (3.5-5.1) Chloride Level 102 mmol/L (101-111) Carbon Dioxide Level 24 mmol/L (21-32) Blood Urea Nitrogen 13 mg/dL (7-18) Creatinine 0.9 mg/dL (0.5-1.0) Glomerular Filtration Rate Calc 76 mL/min (>90) Whole Blood Glucose 231 MG/DL (70-110) H Random Glucose 252 mg/dL (70-105) H Total Calcium 9.3 mg/dL (8.5-10.1) Magnesium Level 2.00 mg/dL (1.80-2.40) Total Bilirubin 0.4 mg/dL (0.2-1.0) Direct Bilirubin 0.1 mg/dL (0.0-0.3) Aspartate Amino Transf (AST/SGOT) 27 U/L (10-37) Alanine Aminotransferase (ALT/SGPT) 56 U/L (12-78) Alkaline Phosphatase 93 U/L (50-136) Total Creatine Kinase 99 U/L (21-232) # Troponin I High Sensitivity 5 ng/L (4-50) Total Protein 8.2 g/dL (6.0-8.3) Albumin 3.7 g/dL (3.5-5.0) Serum Test, Qualitative NEGATIVE (NEGATIVE) Serum Alcohol < 3 mg/dL (0-10) Urine Color YELLOW (YELLOW) Urine Appearance CLEAR (CLEAR) Urine pH 6.0 (5.0-8.0) Urine Specific [place] 1.033 (1.001-1.031) Urine Protein 100 mg/dL (NEGATIVE) H Urine Glucose (UA) >=1000 mg/dL (NEGATIVE) H Urine Ketones 5 mg/dL (NEGATIVE) H Urine Occult Blood NEGATIVE (NEGATIVE) Urine Nitrate NEGATIVE (NEGATIVE) Urine Bilirubin NEGATIVE mg/dL (NEGATIVE) Urine Urobilinogen 2.0 mg/dL (0.2-1.0) H Urine Leukocyte Esterase NEGATIVE Mercedes/uL Urine RBC 2-5 /HPF (0-1) H Urine WBC 6-10 /HPF (0-1) H Urine Squamous Epithelial Cells RARE /HPF (0-2) Urine Bacteria RARE /HPF (None Seen) Urine Opiates Screen NEGATIVE (NEGATIVE) Urine Barbiturates Screen NEGATIVE (NEGATIVE) Urine Phencyclidine Screen NEGATIVE (NEGATIVE) Urine Amphetamines Screen NEGATIVE (NEGATIVE) Urine Benzodiazepines Screen NEGATIVE (NEGATIVE) Urine Cocaine Screen NEGATIVE (NEGATIVE) Urine Marijuana (THC) Screen NEGATIVE (NEGATIVE) Labs Reviewed?: Yes EKG/XRAY/US/CT/MRI CT Scan Comment REASON: ams ORDERING PHYSICIAN: DESI HERNANDEZ PAC PROCEDURE: HEAD WO - CT HEAD/BRAIN W/O CONTRAST EXAM: CT Head Without IV contrast. CLINICAL HISTORY: ams TECHNIQUE: Axial computed tomography images of the head/brain without intravenous contrast. Sagittal and coronal reconstructions were reviewed. A CT scan is done according to ALARA (As Low As Reasonably Achievable). COMPARISON: None provided. FINDINGS: BRAIN: No evidence of acute hemorrhage. No mass lesion. No CT evidence for acute territorial infarct. No midline shift or extra-axial collections. VENTRICLES: No hydrocephalus. ORBITS: The orbits are unremarkable. SINUSES AND MASTOIDS: Mild bilateral ethmoid sinusitis. Minimal fluid levels across the right mastoid air cells. The rest of the paranasal sinuses and mastoid air cells are clear. BONES: No fracture. SOFT TISSUES: Mild left supratemporal soft tissue edema. IMPRESSION: No acute intracranial abnormality. No acute fracture or intracranial hematoma. Mild left supratemporal soft tissue edema. Mild bilateral ethmoid sinusitis. Minimal right serous mastoiditis. /[place] DICTATED BY: RIC MEDEL Jr., MD DATE: 02/07/25405 ELECTRONICALLY SIGNED BY: RIC MEDEL Jr., MD DATE: 02/07/25405 [facility] Assumed care of the patient at 3:00 a.m.- This is a 54-year-old female who presented to the emergency room with complaints of nausea vomitings severe dizziness headache and she was basically mumbling initially stating that she did not feel well. Apparently she has chronic right knee pain and gets a pain shot by evening she began having severe nausea vomitings violently and began feeling extremely dizzy and felt like she was going to she had a hard time communicating and was basically mumbling but in termittently was able to explain her symptoms. No fall injury no weakness no blurred vision facial droop motor weakness or seizure activity. No alcohol ingestion or any recreational drug ingestion. She did eventually tell me that she did take tramadol as well as multiple red bull drinks. No fever chills or rigors. No other family members are sick. NIH score 0 GCS 15 had a lot of mumbling and slurred speech Temperature 97.7 pulse 75 respirations 20 blood pressure 168/95 with a pulse oximetry of 99% on room air Chronic medical problems include diabetes mellitus, hypertension, hypercholesterolemia and she also has a device in her back possibly a spinal stimulator-unclear details I have reviewed labs CBC with a normal limits BNP 7 is normal. Glucose is 252 coagulation profile is unremarkable urine drug screen is negative. Urinalysis had proteinuria glycosuria but no evidence of any cystitis. 4:40 a.m.-CT scan of the head is essentially unremarkable for intracranial event however there were signs of bilateral ethmoid sinusitis as well as fluid in the right mastoid. I initiated her on a dose of steroid empiric antibiotics as well as antiemetics. On re-evaluation at 5:00 a.m. and 5:20 a.m. patient significantly improved and she was almost back to normal. I updated her and her mother on CT scan findings labs and likely her symptoms maybe related to either side effects of medications or perhaps simply her gastroparesis however mastoiditis could also give some of the symptoms. Recommended outpatient antibiotic therapy as well as a short steroid trial watching her sugars closely and to follow up with the primary care physician Rationale: Tests considered and ordered secondary to shared decision making include: Labs, urinalysis, CT scan of the head Previous outside records reviewed: Old ER visits. Risk of complication and/or morbidity or mortality of patient management: None Medications-Per medication reconciliation Need for hospitalization: Patient does not meet criteria for hospitalization. Need for emergency major/minor surgery: No There are no social concerns with this patient. Prescription drug management Prescriptions will include symptomatic care Patient's prior external medical records from other ER visits were reviewed by me as indicated. Prior testing and results from previous visits were reviewed. Prior tests were taken into account with medical decision making and resource utilization, independent historian/historians were used to obtain complete medical history. I independently interpreted the test that were performed, results were reviewed by me and considered findings on radiology if ordered. Medical management and examination interpretation discussions were had by me with other qualified healthcare professionals as indicated for the patient's care. ED Course Orders Procedure Category Date Status Time 12 Lead Ekg Tracing- EKG 02/07/25 Logged Technical 01:41 Alcohol, Blood LAB 02/07/25 Complete 01: Cbc With Differential LAB 02/07/25 Complete : Basic Metabolic Panel LAB 02/07/25 Complete : Creatine Kinase, Total LAB 02/07/25 Complete 01:41 Drug Screen Urine LAB 02/07/25 Complete 01:41 Magnesium LAB 02/07/25 Complete 01:41 Testing, LAB 02/07/25 Complete Serum Hcg 01:41 Troponin I High LAB 02/07/25 Complete Sensitivity 01:41 Pt And Ptt LAB 02/07/25 Complete 01:41 Urinalysis Profile LAB 02/07/25 Complete 01:41 Ct Head/Brain W/O CT 02/07/25 Resulted Contrast 01:41 Hepatic Function Panel LAB 02/07/25 Complete 01:41 Culture Urine LISA 02/07/25 In Process 02:07 Methylprednisolone PHA 02/07/25 Complete Succ 125mg (Solu-Medr 03:30 Ondansetron 4mg Inj PHA 02/07/25 Complete (Zofran 4mg Inj) 03:30 Hydromorphone 0.5mg PHA 02/07/25 Complete Syg (Dilaudid 0.5mg 03:30 Ceftriaxone 1g Vial PHA 02/07/25 Complete (Rocephine 1g Inj) 03:30 Current Medications Medications (Trade) Dose Ordered Sig/Maximino Route PRN Reason Start Time Stop Time Status Last Admin Dose Admin Ceftriaxone Sodium (ROCEphine 1G INJ) 1 gm ONCE ONCE IVPB 02/07/25 03:30 02/07/25 03:31 DC 02/07/25 03:42 Hydromorphone HCl (DiLAUDid 0.5MG INJ) 0.5 mg ONCE ONCE IVP 02/07/25 03:30 02/07/25 03:31 DC 02/07/25 03:50 Methylprednisolone Sodium Succinate (Solu-medROL 125MG) 60 mg ONCE ONCE IVP 02/07/25 03:30 02/07/25 03:31 DC 02/07/25 04:15 Ondansetron HCl (zoFRAN 4MG INJ) 4 mg ONCE ONCE IVP 02/07/25 03:30 02/07/25 03:31 DC 02/07/25 03:42 Vital Signs Date Time Temp Pulse Resp B/P (MAP) Pulse Ox O2 Delivery O2 Flow Rate FiO2 02/07/25 05:35 98.2 62 16 136/72 99 Room Air* 0 21 02/07/25 02:00 98.4 72 16 165/85 97 Room Air* 0 02/07/25 01:31 97.7 75 20 168/95 99 Room Air DX & DISP Disposition: Discharge Departure Impression: Primary Impression: Mastoiditis of right side Additional Impressions: Acute ethmoidal sinusitis, Nausea & vomiting Condition: Stable Scripts Ondansetron (Ondansetron Odt) 4 Mg Tab.rapdis 4 MG PO Q6HPRN PRN for nausea, #16 TAB 0 Refills Prov: GARY GARCIA MD 02/07/25 Amoxicillin/Potassium Clav (Amox Tr-K Clv 875-125 mg Tab) 875 Mg-125 Mg Tablet 1 EACH PO BID for 10 Days, #20 TAB 0 Refills Prov: GARY GARCIA MD 02/07/25 Prednisone (Prednisone) 20 Mg Tablet 1 TAB PO AD for 6 Days, #14 TAB 0 Refills TAKE 1 TAB BY MOUTH THREE TIMES PER DAY X3 DAYS, THEN TAKE 1 TAB BY MOUTH TWICE A DAY X2 DAYS, THEN TAKE 1 TAB BY MOUTH ONCE A DAY X1 DAY. Prov: GARY GARCIA MD 02/07/25 Additional Instructions: Patient and the caregiver have been informed of all the diagnostic tests and the imaging conducted during the today's visit to the emergency room and has verbalized understanding of the results I have personally reviewed and interpreted all diagnostic exams performed here in the ER today as well as the vital signs documented by the nursing staff. The patient is now being discharged to home and should follow up with the primary care physician or the specialist as directed by the ER staff. Follow-up with primary care provider in 1 to 2 days. Take medications as directed here in the emergency room. Okay to continue home medications unless otherwise discussed during your visit in the emergency room today. Return to your nearest emergency room if symptoms worsen or if there is no improvement. Call 911 if you need immediate assistance. Take Tylenol or Motrin [id number] as needed and if no contraindications are present. Increase oral hydration. A wound culture or urine culture was ordered here in the emergency room department please follow-up with primary care provider and advise them to get repeat ports from our facility. If you had any Mike wrap/splints that were applied here, please do not remove them until you see your primary care or specialty. Referrals: SELF,REFERRAL (PCP) DESI HERNANDEZ Feb 07, 2025 02:34 GARY GARCIA MD Feb 07, 2025 03:29
--- NOTE | 2025-02-07 03:08 | HMCIMG ---
EXAM: CT Head Without IV contrast. CLINICAL HISTORY: ams TECHNIQUE: Axial computed tomography images of the head/brain without intravenous contrast. Sagittal and coronal reconstructions were reviewed. A CT scan is done according to ALARA (As Low As Reasonably Achievable). COMPARISON: None provided. FINDINGS: BRAIN: No evidence of acute hemorrhage. No mass lesion. No CT evidence for acute territorial infarct. No midline shift or extra-axial collections. VENTRICLES: No hydrocephalus. ORBITS: The orbits are unremarkable. SINUSES AND MASTOIDS: Mild bilateral ethmoid sinusitis. Minimal fluid levels across the right mastoid air cells. The rest of the paranasal sinuses and mastoid air cells are clear. BONES: No fracture. SOFT TISSUES: Mild left supratemporal soft tissue edema. IMPRESSION: No acute intracranial abnormality. No acute fracture or intracranial hematoma. Mild left supratemporal soft tissue edema. Mild bilateral ethmoid sinusitis. Minimal right serous mastoiditis. /[place]
[2025-02-07 06:17] VITALS: BP 132/68; PULSE 64; RESP 16; TEMP 98.3; O2SAT 100
--- NOTE | 2025-02-07 13:08 | EKG ---
[facility] Test Date: 2025-02-07 Test Time: 01:57:08 Pat Name: REYNA MUNGUIA Department: ED Room: Gender: F Record Label Intern: 1376 : 1970 Requested By: DESI HERNANDEZ Order Number: [id number] Reading MD: Dante Peralta Measurements Intervals [place] Rate: 70 P: 40 SD: 139 QRS: 15 QRSD: 82 T: 42 QT: 447 QTc: 483 Interpretive Statements Sinus rhythm Probable left atrial enlargement ST elev, probable normal early repol pattern Compared to ECG 05/21/2024 15:54:08 ST (T wave) deviation now present Electronically Signed On 02-08-2025 09:31:09 PIN TICKET MACHINE OPERATOR by Dante Peralta Please click the below link to view image of tracing.
== END 2025-02-07 06:18 | disposition home or self-care (01) ==
LOC: EDH 01:29
DX: H70.91 Unspecified mastoiditis, right ear (principal); J01.20 Acute ethmoidal sinusitis, unspecified; R11.2 Nausea with vomiting, unspecified; E11.9 Type 2 diabetes mellitus without complications; E78.00 Pure hypercholesterolemia, unspecified; I10 Essential (primary) hypertension; Z79.01 Long term (current) use of anticoagulants; Z79.1 Long term (current) use of non-steroidal anti-inflammatories (NSAID); Z79.52 Long term (current) use of systemic steroids; Z88.6 Allergy status to analgesic agent; Z90.49 Acquired absence of other specified parts of digestive tract; Z98.51 Tubal ligation status; Z79.899 Other long term (current) drug therapy
CPT/HCPCS: 99285; 96365; 70450; 96375; 82550; 80076; 83735; 84484; 80048; 80305; 84703; 85025; 85610; 85730; 87086; 82948; 81001; 36415; 96368; 93005; J2919; J0696; J2405; J1171